=== PATIENT | male | born 1960 | race Caucasian/White ===

== ENCOUNTER 2020-06-01 11:44 | Inpatient (IN) ==
[2020-06-01] MEDS ORDERED: SODIUM CHLORIDE 0.9% 1000ML 1,000 ML IV ONE (12:46)
[2020-06-01] MEDS ORDERED: GI COCKTAIL ED USE PO ONE (12:46)
[2020-06-01] MEDS ORDERED: FAMOTIDINE 20MG IV PUSH 20 MG/5 ML SYR IV STA (12:46)
[2020-06-01] MEDS ORDERED: METOCLOPRAMIDE HCL INJ 5 MG/ML 2 ML VIAL IV STA (12:50)
[2020-06-01 13:36] LABS: Basophils # (auto) 0.01 K/uL (0-0.2); Basophils % (auto) 0.2 %; Eosinophils # (auto) 0.04 K/uL (0-0.5); Eosinophils % (auto) 0.9 %; Hematocrit (blood only) 42.5 % (42-52); Hemoglobin 15.2 g/dL (14.0-18.0); Immature Granulocytes # (auto) 0.01 K/uL (0.00-0.02); Immature Granulocytes % (auto) 0.2 %; Lymphocytes # (auto) 1.88 K/uL (1.2-3.4); Lymphocytes % (auto) 44.4 %; Mean Corpuscular Hemoglobin 29.7 pg (25-34); Mean Corpuscular Hgb Conc 35.8 g/dL (32-36); Mean Platelet Volume 9.5 fL (7.4-10.4); Monocytes # (auto) 0.34 K/uL (0.11-0.59); Neutrophils # (auto) 1.95 K/uL (1.4-6.5); Neutrophils % (auto) 46.3 %; Platelet Count 170 K/uL (130-400); RDW Coefficient of Variation 13.3 % (11.5-14.5); RDW Standard Deviation 40.2 fL (36.4-46.3); Red Blood Count 5.12 M/uL (4.7-6.1); White Blood Count 4.23 K/uL (4.8-10.8)
--- NOTE | 2020-06-01 13:42 | XRay Report ---
SINGLE VIEW CHEST CLINICAL HISTORY: Epigastric abdominal pain. FINDINGS: An AP, portable, upright chest radiograph is compared to study dated 07/21/2019 and correlat ed with chest CT dated 07/17/2019. The heart is top normal for projection. The lungs and pleural space s are clear. No pneumothorax is seen. The bony thorax is grossly intact. IMPRESSION: No active disease in the chest. ACT 112: Negative or not required by law. Electronically signed by: Gregory Orosco M.D. 06/01/2020 1:41 PM
[2020-06-01 13:52] LABS: Alanine Aminotransferase 51 U/L (12-78); Albumin Level 3.6 gm/dl (3.4-5.0); Aspartate Aminotransferase 29 U/L (15-37); BUN Creatinine Ratio 10.4 (10-20); Blood Urea Nitrogen 10 mg/dl (7-18); Carbon Dioxide 27 mmol/L (21-32); Chloride 109 mmol/L (98-107); Est GFR (Non-African American) 85.4; Glucose 83 mg/dl (70-99); Lipase 165 U/L (73-393); Potassium 3.8 mmol/L (3.5-5.1); Sodium 142 mmol/L (136-145)
[2020-06-01 13:57] LABS: Albumin Globulin Ratio 1.1 (0.9-2); Alkaline Phosphatase 131 U/L (45-117); Bilirubin,Total 0.9 mg/dl (0.2-1); Globulin 3.2 gm/dl (2.5-4.0); Total Protein 6.8 gm/dl (6.4-8.2); Troponin I < 0.015 ng/ml (0-0.045)
[2020-06-01 13:57] LABS: Appearance Urine Clear (Clear); Bacteria Urine Automated Negative (Negative); Bilirubin Urine Negative (Negative); Blood Urine Trace (Negative); Color Urine Yellow; Epithelial Cell Urine Auto 0-5 /lpf (0-5); Glucose Urine UA Negative (Negative); Ketones Urine Negative (Negative); Leukocyte Esterase Urine Negative (Negative); Nitrite Urine Negative (Negative); Protein Urine Negative (Negative); RBC Urine Automated 0-4 /hpf (0-4); Specific Gravity Urine 1.012 (1.000-1.030); Urobilinogen Urine Negative (Negative)
[2020-06-01] MEDS ORDERED: IOVERSOL 100ml IV ONE (14:32)
--- NOTE | 2020-06-01 15:00 | CT Scan Report ---
CT abd pelvis IV con only CLINICAL HISTORY: epigastric pain COMPARISON STUDY: 02/19/2020 TECHNIQUE: Patient was scanned in a dynamic helical fashion during intravenous administration of 94 c c of Optiray 320 A dose lowering technique was utilized adhering to the principles of ALARA. CT DOSE: 1008.30 mGycm FINDINGS: Lower chest: There are groundglass pulmonary opacities within the right lower lobe with a cyst periph eral distribution. The findings are viewed as suspicious for a Cobra 19 pneumonia and correlation wit h Covid 19 testing is recommended. Liver: The contrast-enhanced liver is normal in size, contour, and attenuation. There is no intrahepa tic biliary ductal dilatation. The hepatic veins and portal veins are patent. Gallbladder: Surgically absent Spleen: Normal in size and attenuation. Pancreas: Unremarkable. Adrenal glands: Unremarkable. Kidneys: There are large right renal cysts and small left renal cysts. There are lower pole right piyush al calculi. There is no hydronephrosis. No ureteral or bladder calculi are visualized. Bowel: There are no transition zones indicate bowel obstruction. There is no evidence of acute divert iculitis. There is equivocal minor right colonic wall thickening. A minimal colitis cannot be exclude d. Peritoneum: There is no intraperitoneal free air or abdominal ascites. Vasculature: The abdominal aorta is normal in course and caliber. Adenopathy: None. Pelvic viscera: The prostate is enlarged. Skeletal structures: No destructive osseous lesions are seen. IMPRESSION: 1. No evidence of bowel obstruction. No evidence of free air 2. Right-sided nephrolithiasis. No evidence of hydronephrosis. 3. Prostatomegaly 4. Equivocal minimal right colonic wall thickening. A minimal colitis cannot be excluded 5. Right lower lobe groundglass pulmonary opacities, suspicious for a pneumonia. Correlation with Cov id 19 testing is recommended ACT 112: Negative or not required by law. Electronically signed by: Bunny Linares M.D. 06/01/2020 2:58 PM
--- NOTE | 2020-06-01 15:23 | Emergency Department Note ---
History of Present Illness General Chief complaint: Abdominal Pain Stated complaint: CONFUSION, VOMITING Time Seen by Provider: 06/01/20 12:40 Source: patient Mode of arrival: ambulatory Limitations: no limitations History of Present Illness Provider complaint: "I got a bellyache" Onset (ago): week(s) 2 Maximum Pain Intensity: 8 This 60-year-old male patient presents to the emergency department today for evaluation of "I got a belly ache". The patient states he has been experiencing epigastric pain, nausea, vomiting, difficulty eating since 05/19. He states he is feeling very hungry, but every time he eats he vomits. He has been able to keep down some p.o. fluids. He was here 2 days ago and had labs but no imaging completed. He saw his PCP via telehealth visit prior to arrival today who referred him to the emergency department, as he did not feel well enough to wait for an outpatient work-up. He states he has taken nausea medication without relief. He denies any chest pain or dyspnea. He states he has had some coughing which began 2 weeks ago as well. He reports constant generalized body aches and epigastric pain which is nonpositional. It is constant. Patient has taken no other medications for his symptoms. He denies any known COVID-19 exposures. Home Medications Medication Instructions Recorded Confirmed Type lisinopril 10 mg tablet 10 mg PO QAM 04/15/19 06/01/20 History diazepam [Valium] 5 mg PO Q8H PRN #10 tab 02/19/20 06/01/20 Rx cholecalciferol (vitamin D3) 25 mcg PO QAM 05/30/20 06/01/20 History [Vitamin D3] doxycycline hyclate 100 mg PO Q12H 7 Days #14 tab 05/30/20 06/01/20 Rx ibuprofen 200 mg PO Q6H PRN 05/30/20 06/01/20 History ondansetron HCl [Zofran] 4 mg PO TID PRN 5 Days #15 tab 05/30/20 06/01/20 Rx vitamin E 450 mg PO QAM 05/30/20 06/01/20 History Allergies Allergy/AdvReac Type Severity Reaction Status Date / Time No Known Allergies Allergy Verified 06/01/20 13:46 Past Med/Surg History Medical History (Updated 12/04/20 @ 16:28 by Silvana Mascorro PA-C) Family history of melanoma Hypertension Surgical History No significant past surgical history Family History Sister Melanoma Social History Smoking Status: Never smoker Tobacco Type: Smokeless Tobacco (Dip or Chew) Hx Alcohol Use: Yes Hx Substance Use: No Preferred Language: Slovak Feels Safe at Home: Yes Review of Systems A total of 10 systems reviewed and were otherwise negative Physical Exam Vital Signs Vital Signs - 24 hr 06/01/20 11:50 06/01/20 12:53 06/01/20 12:56 Temperature 36.7 C Temperature Source Skin Pulse Rate 86 68 Respiratory Rate 20 12 Respiratory Effort / Characteristics Non-Labored Respiratory Depth Normal Blood Pressure 111/81 Blood Pressure Mean 91 Pulse Oximetry 97 97 Oxygen Delivery Method Room Air Room Air Sepsis Recent Fever Within 48 Hours No Sepsis New/Unexplained Change in Mental Status N/A Sepsis Action Taken by Nursing No Action Required 06/01/20 13:00 06/01/20 13:24 06/01/20 13:30 Temperature Temperature Source Pulse Rate 68 69 76 Respiratory Rate 18 15 17 Respiratory Effort / Characteristics Respiratory Depth Blood Pressure 118/72 140/77 Blood Pressure Mean 75 103 Pulse Oximetry Oxygen Delivery Method Sepsis Recent Fever Within 48 Hours Sepsis New/Unexplained Change in Mental Status Sepsis Action Taken by Nursing 06/01/20 14:00 06/01/20 15:10 06/01/20 15:11 Temperature Temperature Source Pulse Rate 67 78 71 Respiratory Rate 12 17 17 Respiratory Effort / Characteristics Respiratory Depth Blood Pressure 154/71 H Blood Pressure Mean 82 Pulse Oximetry Oxygen Delivery Method Sepsis Recent Fever Within 48 Hours Sepsis New/Unexplained Change in Mental Status Sepsis Action Taken by Nursing 06/01/20 15:30 Temperature Temperature Source Pulse Rate 77 Respiratory Rate 14 Respiratory Effort / Characteristics Respiratory Depth Blood Pressure 142/87 H Blood Pressure Mean 89 Pulse Oximetry Oxygen Delivery Method Sepsis Recent Fever Within 48 Hours Sepsis New/Unexplained Change in Mental Status Sepsis Action Taken by Nursing VITALS: Vitals are noted on the nurse's note and reviewed by myself. Vital sign s stable. GENERAL: This is a 60-year-old white male, in no acute distress, nondiaphoretic, well-developed well-nourished. SKIN: The skin was without rashes, erythema, edema, or bruising. There is no tenting of the skin. Capillary refill less than 2 seconds. HEAD: Normocephalic atraumatic. EYES: Conjunctivae without injection, sclerae without icterus. NECK: Supple without nuchal rigidity. No lymphadenopathy. Cervical spine is nontender. No JVD. HEART: Regular rate and rhythm without murmurs gallops or rubs. LUNGS: Clear to auscultation bilaterally without wheezes, rales or rhonchi. No retractions or accessory muscle use. ABDOMEN: Positive bowel sounds x 4. Normal tympanic percussion. Epigastric tenderness to palpation. Abdomen otherwise soft, nontender, without masses or organomegaly. Pete sign negative. No guarding or rebound tenderness. No CVA tenderness. MUSCULOSKELETAL: No muscle atrophy, erythema, or edema noted. Full range of motion without joint tenderness in all extremities. No tenderness to palpation. Normal gait. Strength 5/5 throughout. NEURO: Patient was alert and oriented to person place and time. No focal neurological deficits. Course Course The patient was seen and evaluated as above. An order was placed for continuous cardiac monitoring. The monitor shows a normal sinus rhythm at a rate of 71 bpm. IV access obtained, labs drawn. Patient medicated with IV fluids, Reglan, Pepcid, and GI cocktail. Imaging performed and reviewed by myself and radiologist as noted. Labs reviewed by myself. I discussed the findings with the patient at bedside. CT imaging concerning for possible COVID-19 pneumonia with groundglass pulmonary opacities noted in the right lower lobe. I discussed the findings with the patient at bedside. He states he is continuing to feel "lousy". He is asking for something to eat and states he does not feel that he can manage his symptoms at home. He is requesting admission. COVID-19 testing ordered and performed. I discussed the case with the strategic planning manager. I discussed the case with Gretchen Gannon PA-C, [facility] hospitalist. She did agree to see and evaluate the patient. Administered Medications Discontinued Medications Al Hydrox/Mg Hydrox/Simethicone (Gi Cocktail Ed Use) 1 dose PO ONE ONE Stop: 06/01/20 12:47 Last Admin: 06/01/20 13:24 Dose: 1 dose Documented by: [id number] Sodium Chloride (Nss 1000ml) 1,000 mls @ 999 mls/hr IV .Q1H1M ONE Stop: 06/01/20 13:46 Last Infusion: 06/01/20 14:31 Dose: 0 mls/hr Documented by: [id number] Admin: 06/01/20 13:24 Dose: 999 mls/hr Documented by: [id number] Famotidine (Pepcid 20mg Iv Push) 20 mg in 5 mls @ 2.5 mls/min IV NOW STA Stop: 06/01/20 12:47 Last Admin: 06/01/20 13:24 Dose: 2.5 mls/min Documented by: [id number] Ioversol (Ioversol 100ml) 94 ml IV ONCE ONE Stop: 06/01/20 14:33 Last Admin: 06/01/20 14:33 Dose: 94 ml Documented by: [id number] Metoclopramide HCl (Metoclopramide Hcl Inj 5 Mg/Ml 2 Ml Vial) 10 mg IV NOW STA Stop: 06/01/20 12:51 Last Admin: 06/01/20 13:24 Dose: 10 mg Documented by: [id number] Medical Decision Making Differential Diagnosis Etiologies such as appendicitis, diverticulitis, obstruction, inflammatory bowel disease, renal colic, PUD, biliary pathology, pancreatitis, mesenteric ischemia, aortic pathology, infections, genitourinary, UTI, perforated viscus, COVID-19, pneumonia, as well as others were entertained. Medical Records Attestation: I reviewed the patient's medical records. Home Medications Current Medication List: was personally reviewed by me Laboratory Data Attestation: I reviewed the patient's lab results. Mild leukopenia with a white blood cell count of 4.22. No anemia or thrombocytopenia. Renal, hepatic function electrolytes without significant abnormality. Troponin negative. Lipase 165. Urinalysis negative for evidence of infection. Trace blood noted. Result diagrams: 06/01/20 13:20 06/01/20 13:20 Lab Results 06/01/20 06/01/20 06/01/20 Range/Units 13:20 13:20 13:40 WBC 4.23 L (4.8-10.8) K/uL RBC 5.12 (4.7-6.1) M/uL Hgb 15.2 (14.0-18.0) g/dL Hct 42.5 (42-52) % MCV 83.0 (80-100) fL MCH 29.7 (25-34) pg MCHC 35.8 (32-36) g/dL RDW Std Deviation 40.2 (36.4-46.3) fL RDW Coeff of Pollo 13.3 (11.5-14.5) % Plt Count 170 (130-400) K/uL MPV 9.5 (7.4-10.4) fL Immature Gran % (Auto) 0.2 % Neut % (Auto) 46.3 % Lymph % (Auto) 44.4 % [place] % (Auto) 8.0 % Eos % (Auto) 0.9 % Baso % (Auto) 0.2 % Neut # (Auto) 1.95 (1.4-6.5) K/uL Lymph # (Auto) 1.88 (1.2-3.4) K/uL [place] # (Auto) 0.34 (0.11-0.59) K/uL Eos # (Auto) 0.04 (0-0.5) K/uL Baso # (Auto) 0.01 (0-0.2) K/uL Immature Gran # (Auto) 0.01 (0.00-0.02) K/uL Sodium 142 (136-145) mmol/L Potassium 3.8 (3.5-5.1) mmol/L Chloride 109 H (98-107) mmol/L Carbon Dioxide 27 (21-32) mmol/L Anion Gap 6.0 (3-11) BUN 10 (7-18) mg/dl Creatinine 0.95 (0.6-1.4) mg/dl Est Cr Clr Drug Dosing Not Reportable Est GFR ( Amer) 99.0 Est GFR (Non-Af Amer) 85.4 BUN/Creatinine Ratio 10.4 (10-20) Glucose 83 (70-99) mg/dl Calcium 9.0 (8.5-10.1) mg/dl Total Bilirubin 0.9 (0.2-1) mg/dl AST 29 (15-37) U/L ALT 51 (12-78) U/L Alkaline Phosphatase 131 H (45-117) U/L Troponin I < 0.015 (0-0.045) ng/ml Total Protein 6.8 (6.4-8.2) gm/dl Albumin 3.6 (3.4-5.0) gm/dl Globulin 3.2 (2.5-4.0) gm/dl Albumin/Globulin Ratio 1.1 (0.9-2) Lipase 165 (73-393) U/L Urine Color Yellow Urine Appearance Clear (Clear) Urine pH 5.0 (4.5-7.5) Ur Specific [place] 1.012 (1.000-1.030) Urine Protein Negative (Negative) Urine Glucose (UA) Negative (Negative) Urine Ketones Negative (Negative) Urine Blood Trace H (Negative) Urine Nitrite Negative (Negative) Urine Bilirubin Negative (Negative) Urine Urobilinogen Negative (Negative) Ur Leukocyte Esterase Negative (Negative) Urine WBC (Auto) 1-5 (0-5) /hpf Urine RBC (Auto) 0-4 (0-4) /hpf U Hyaline Cast (Auto) 1-5 (0-5) /lpf U Epithel Cells (Auto) 0-5 (0-5) /lpf Urine Bacteria (Auto) Negative (Negative) COVID-19 Eval Order 06/01/20 Range/Units 15:37 WBC (4.8-10.8) K/uL RBC (4.7-6.1) M/uL Hgb (14.0-18.0) g/dL Hct (42-52) % MCV (80-100) fL MCH (25-34) pg MCHC (32-36) g/dL RDW Std Deviation (36.4-46.3) fL RDW Coeff of Pollo (11.5-14.5) % Plt Count (130-400) K/uL MPV (7.4-10.4) fL Immature Gran % (Auto) % Neut % (Auto) % Lymph % (Auto) % [place] % (Auto) % Eos % (Auto) % Baso % (Auto) % Neut # (Auto) (1.4-6.5) K/uL Lymph # (Auto) (1.2-3.4) K/uL [place] # (Auto) (0.11-0.59) K/uL Eos # (Auto) (0-0.5) K/uL Baso # (Auto) (0-0.2) K/uL Immature Gran # (Auto) (0.00-0.02) K/uL Sodium (136-145) mmol/L Potassium (3.5-5.1) mmol/L Chloride (98-107) mmol/L Carbon Dioxide (21-32) mmol/L Anion Gap (3-11) BUN (7-18) mg/dl Creatinine (0.6-1.4) mg/dl Est Cr Clr Drug Dosing Est GFR ( Amer) Est GFR (Non-Af Amer) BUN/Creatinine Ratio (10-20) Glucose (70-99) mg/dl Calcium (8.5-10.1) mg/dl Total Bilirubin (0.2-1) mg/dl AST (15-37) U/L ALT (12-78) U/L Alkaline Phosphatase (45-117) U/L Troponin I (0-0.045) ng/ml Total Protein (6.4-8.2) gm/dl Albumin (3.4-5.0) gm/dl Globulin (2.5-4.0) gm/dl Albumin/Globulin Ratio (0.9-2) Lipase (73-393) U/L Urine Color Urine Appearance (Clear) Urine pH (4.5-7.5) Ur Specific [place] (1.000-1.030) Urine Protein (Negative) Urine Glucose (UA) (Negative) Urine Ketones (Negative) Urine Blood (Negative) Urine Nitrite (Negative) Urine Bilirubin (Negative) Urine Urobilinogen (Negative) Ur Leukocyte Esterase (Negative) Urine WBC (Auto) (0-5) /hpf Urine RBC (Auto) (0-4) /hpf U Hyaline Cast (Auto) (0-5) /lpf U Epithel Cells (Auto) (0-5) /lpf Urine Bacteria (Auto) (Negative) COVID-19 Eval Order Covid19 IDNow [facility] Imaging Data Radiologist's Impression: SINGLE VIEW CHEST CLINICAL HISTORY: Epigastric abdominal pain. FINDINGS: An AP, portable, upright chest radiograph is compared to study dated 07/21/2019 and correlated with chest CT dated 07/17/2019. The heart is top normal for projection. The lungs and pleural spaces are clear. No pneumothorax is seen. The bony thorax is grossly intact. IMPRESSION: No active disease in the chest. ACT 112: Negative or not required by law. Electronically signed by: Gregory Orosco M.D. 06/01/2020 1:[address] abd pelvis IV con only CLINICAL HISTORY: epigastric pain COMPARISON STUDY: 02/19/2020 TECHNIQUE: Patient was scanned in a dynamic helical fashion during intravenous administration of 94 cc of Optiray 320 A dose lowering technique was utilized adhering to the principles of ALARA. CT DOSE: 1008.30 mGycm FINDINGS: Lower chest: There are groundglass pulmonary opacities within the right lower lobe with a cyst peripheral distribution. The findings are viewed as suspicious for a Cobra 19 pneumonia and correlation with Covid 19 testing is recommended. Liver: The contrast-enhanced liver is normal in size, contour, and attenuation. There is no intrahepatic biliary ductal dilatation. The hepatic veins and portal veins are patent. Gallbladder: Surgically absent Spleen: Normal in size and attenuation. Pancreas: Unremarkable. Adrenal glands: Unremarkable. Kidneys: There are large right renal cysts and small left renal cysts. There are lower pole right renal calculi. There is no hydronephrosis. No ureteral or bladder calculi are visualized. Bowel: There are no transition zones indicate bowel obstruction. There is no evidence of acute diverticulitis. There is equivocal minor right colonic wall thickening. A minimal colitis cannot be excluded. Peritoneum: There is no intraperitoneal free air or abdominal ascites. Vasculature: The abdominal aorta is normal in course and caliber. Adenopathy: None. Pelvic viscera: The prostate is enlarged. Skeletal structures: No destructive osseous lesions are seen. IMPRESSION: 1. No evidence of bowel obstruction. No evidence of free air 2. Right-sided nephrolithiasis. No evidence of hydronephrosis. 3. Prostatomegaly 4. Equivocal minimal right colonic wall thickening. A minimal colitis cannot be excluded 5. Right lower lobe groundglass pulmonary opacities, suspicious for a pneumonia. Correlation with Covid 19 testing is recommended ACT 112: Negative or not required by law. Electronically signed by: Bunny Linares M.D. 06/01/2020 2:58 PM ECG Data Attestation: I personally reviewed and interpreted this ECG as follows: Indication: + abdominal pain Rate (beats per minute): 64 Rhythm: + normal sinus ECG Intervals/blocks: + Normal QT-c ECG [place]: + Left axis deviation ECG ST segments: no ST depression, no ST elevation and no T-wave inversions Comparison ECG Date: from (05/30/2020) Change: no significant change Blood Pressure Blood Pressure Findings: Elevated blood pressure Blood Pressure Disposition: further management by hospitalist NARA Narrative This 60-year-old male patient presents to the emergency department today for evaluation of nausea, vomiting, and generalized fatigue and epigastric pain. Symptoms sound most consistent with gastritis, pain worse with lying flat and improves with upright. He has been having difficulty tolerating p.o. foods, but has been tolerating small amounts of fluids. He has been taking nausea medication without relief of his symptoms. Patient was referred by his PCP due to his symptoms and for imaging. Patient's labs unrevealing. Mild leukopenia. Electrolytes without abnormality. Urinalysis without evidence of infection or blood. CT imaging questionable for a minimal colitis and right lower lobe groundglass opacities, concerning for possible COVID-19. Rapid COVID-19 testing completed and was negative. Patient was complaining of feeling very hungry and asking for food, so was given p.o. fluids and applesauce. I did ask if he felt well enough to be discharged home, and he does not feel that he will be able to manage his symptoms at home and prefers to stay in the hospital. The patient will be admitted to the [facility] service for ongoing management of his symptoms. Please see hospitalist dictation. The chart was completed utilizing [employer] Speech voice recognition software. Grammatical errors, random word insertions, pronoun errors, and incomplete sentences are an occasional consequence of this system due to software limitations, ambient noise, and hardware issues. Any formal questions or concerns about the content, text, or information contained within the body of this dictation should be directly addressed to the provider for clarification. Impression & Plan Nausea, Abdominal pain Discharge Plan Visit Data Chief Complaint: Abdominal Pain Stated Complaint: CONFUSION, VOMITING ED Provider: Tuan Horne ED Midlevel Provider: Silvana Mascorro Discharge Problem: Nausea, Abdominal pain Patient Disposition: Admitted As Inpatient Forms Stand Alone Forms: My [employer] Prescriptions Prescriptions: No Action lisinopril 10 mg tablet 10 mg PO QAM RF: 0 vitamin E 400 unit Tablet 450 mg PO QAM RF: 0 ibuprofen 100 mg/5 mL Suspension 200 mg PO Q6H PRN (Reason: fever/pain) RF: 0 cholecalciferol (vitamin D3) [Vitamin D3] 25 mcg (1,000 unit) Tablet 25 mcg PO QAM RF: 0 ondansetron HCl [Zofran] 4 mg tablet 4 mg PO TID PRN (Reason: nausea and vomiting) 5 Days Qty: 15 RF: 0 doxycycline hyclate 100 mg tablet 100 mg PO Q12H 7 Days Qty: 14 RF: 0 diazepam [Valium] 5 mg tablet 5 mg PO Q8H PRN (Reason: musce spasm) Qty: 10 RF: 0 Referrals Referrals: Marie Driver MD [Primary Care Provider] -
--- NOTE | 2020-06-01 17:25 | History & Physical Report ---
Date of Service June 01, 2020 Assessment & Plan (1) Abdominal pain: (2) Nausea: This is a 60-year-old male who has significant past medical history of HTN, HLD, GERD, history of gastroparesis, history of melanoma, cerebral degeneration who presents to ED secondary to abdominal pain and ill feeling x2 weeks. Pt with multiple vague/viral sounding complaints x 2 weeks including chills, sweats, nausea, abdominal pain, loose stool, dry cough and general ill feeling that is worsening. 3 COVID-19 test negative, 05/21, 05/28 and 06/01. Known exposure prior to 05/19. Labs and imaging generally unremarkable, except right-sided nephrolithiasis and mild right colonic wall thickening possible colitis. Afebrile. Admit to medical Conservative management at this time with gentle hydration and clear liquid diet ? exacerbation of gastroparesis so we will continue clear liquid diet, as ne eded Reglan consult GI obtain stool studies continue doxycycline, day # 3, started 05/30 07/31 to tick bite, lyme negative but anaplasma pending PPI BID Tramadol prn abd pain obtain CT Chest w/o contrast given abd ground glass opacity on CT a/p (3) Hypertension: bp elevated in ED continue lisinopril monitor (4) Gastroparesis: (5) GERD (gastroesophageal reflux disease): pt with hx of esophagitis and [facility] done [facility] 2002 showing only 33% activity emptied by 120minutes Pantoprazole 40mg BID Clear liquid Diet Reglan 10mg q6h prn consult GI (6) Weight loss: reported 15lb weight loss since 05/19 work up as above (7) DVT prophylaxis: SQ Lovenox Disposition: admit to med/surg Follow up: PCP Dr. Driver upon discharge Pt was seen and examined in collaboration with Dr. Coleman, please see addendum History of Present Illness Chief Complaint: Abdominal pain and ill feeling x2 weeks. Primary Care Provider: Marie Driver MD This is a 60-year-old male who has significant past medical history of HTN, HLD, GERD, history of gastroparesis, history of melanoma, cerebral degeneration who presents to ED secondary to abdominal pain and ill feeling x2 weeks. Patient has been seen and evaluated in outside clinic x2, starting on 05/21. He states he was hunting with his buddies when on 05/19 he developed vague symptoms including chills, sweats, ill feeling, myalgias, nausea, loose stool and with upper quadrant abdominal pain. He was concerned he had Covid secondary to known exposure at [facility]. His initial screen was negative. Symptoms did not improve and he was having difficulty tolerating food or liquid. He was seen and evaluated again in clinic on 05/28 where he was retested for Covid. This again was negative. He was started on omeprazole and Protonix. He was seen in the ER on 05/30 and lab work was generally unremarkable and therefore he was discharged to home. He had a telemedicine visit with PCP today who offered further work-up but patient opted to present to ED. He states he continues to have chills but the sweats have resolved for about a week. He does occasionally feel dizzy when changing position, but denies syncope. He does have a very mild dry cough, nausea, epigastric and left upper quadrant abdominal pain that comes and goes, vomiting and inability to tolerate oral intake. Pain in left upper quadrant does not have a pattern. It is not worse with or after intake. He is moving bowels daily but describes it as loose. He has tried Pepto-Bismol which turned stools black, but this abated once he stopped using Pepto-Bismol. His last BM was today and was loose. Again pain with upper quadrant comes and goes, nothing makes better or worse, associate with a 10 to 15 pound weight loss in the past 2 weeks. He does not want to be discharged home due to inability to tolerate oral intake and continued weight loss. He has known tick bite 1 month ago. Lyme screen on 05/30 was negative and anaplasma still pending. He is currently prescribe doxycycline. Denies documented fever, lightheadedness, syncope, chest pain, shortness of breath, palpitations, MADRIGAL, hemoptysis, hematemesis, melena, dysuria, increased urgency or frequency with urination. As an outpatient he has tried omeprazole daily for about a week without improvement. He also tried Pepcid with no relief. According to outpatient records he does have a history in 2002 and a diagnosis of gastroparesis. States this somewhat feels similar to prior presentation, but much worse. In ED patient made hemodynamically stable, modestly hypertensive. CBC revealed a WBC low at 4.23k, H&H 15.2 and 42.5, platelet 170, BUN 10, creatinine 0.95, troponin and lipase WNL. He received IV Pepcid and GI cocktail in ED with mild improvement. Patient refusing discharge and requesting inpatient work-up. Allergies Allergy/AdvReac Type Severity Reaction Status Date / Time No Known Allergies Allergy Verified 06/01/20 13:46 Home Medications Medication Instructions Recorded Confirmed Type lisinopril 10 mg tablet 10 mg PO QAM 04/15/19 06/01/20 History diazepam [Valium] 5 mg PO Q8H PRN #10 tab 02/19/20 06/01/20 Rx cholecalciferol (vitamin D3) 25 mcg PO QAM 05/30/20 06/01/20 History [Vitamin D3] doxycycline hyclate 100 mg PO Q12H 7 Days #14 tab 05/30/20 06/01/20 Rx ibuprofen 200 mg PO Q6H PRN 05/30/20 06/01/20 History ondansetron HCl [Zofran] 4 mg PO TID PRN 5 Days #15 tab 05/30/20 06/01/20 Rx vitamin E 450 mg PO QAM 05/30/20 06/01/20 History Past Med/Surg History Medical History (Updated 06/01/20 @ 17:36 by Gretchen Gannon PA-C) Cerebral degeneration documented in [facility] Family history of melanoma Gastroparesis Gastric emptying study 09/15/2002 revealed delayed solid gastric emptying exam with only 33% of activity emptied by 120 minutes. GERD (gastroesophageal reflux disease) HLD (hyperlipidemia) Hypertension Surgical History (Updated 06/01/20 @ 17:30 by Gretchen Gannon PA-C) History of cholecystectomy Hx of local excision of skin lesion melanoma back of head Family History Sister Melanoma Social History (Updated 06/01/20 @ 17:30 by Gretchen Gannon PA-C) Smoking Status: Never smoker Tobacco Type: Smokeless Tobacco (Dip or Chew) Hx Alcohol Use: Yes Alcohol Intake Frequency: Monthly or Less Hx Substance Use: No Preferred Language: Togolese marital status: Current Living Situation: Spouse current occupational status: retired Feels Safe at Home: Yes Review of Systems Review of Systems: All systems reviewed & are unremarkable except as noted in HPI & below Physical Exam Physical Exam: Constitutional: WD/WN, vitals as above, NAD, sitting up in bed, pleasant, conversing easily Head: Normocephalic, Atraumatic Eyes: PERRL, conjunctivae normal, anicteric sclerae ENMT: external ear and nose normal, oropharynx normal Neck: trachea midline, no thyromegaly normal visual inspection Respiratory: normal respiratory effort, lungs clear to auscultation, no wheeze, rales, rhonchi. Normal insp/exp effort, no accessory muscle use Cardiovascular: RRR, no murmur, no edema Vessels: no JVD or carotid bruit Chest: normal inspection of chest Abdomen: normal bowel sounds, soft, nontender, no hepatosplenomegaly Musculoskeletal: no cyanosis or clubbing, extremities motor strength 5/5 Skin: no rashes, warm and dry normal turgor Neurologic: PERRL, EOMI, accommodation nl, no face palsy, no dysarthria CN's II-XI intact bilaterally and moves all extremities Psychiatric: A+Ox3, euthymic affect Lymphatic: no cervical or axillary lymphadenopathy : deferred Results & Data Results & Data ([facility]) Vital Signs (Past 12 Hours) Vital Signs Temp Pulse Resp BP Pulse Ox 06/01/20 17:01 71 14 167/109 H 06/01/20 16:30 61 15 06/01/20 16:00 84 13 06/01/20 15:30 77 14 142/87 H 06/01/20 15:11 71 17 154/71 H 06/01/20 15:10 78 17 06/01/20 14:00 67 12 06/01/20 13:30 76 17 140/77 06/01/20 13:24 69 15 118/72 06/01/20 13:00 68 18 06/01/20 12:56 68 12 06/01/20 12:53 97 06/01/20 11:50 36.7 C 86 20 111/81 97 Laboratory Results Short CBC 06/01/20 06/01/20 Range/Units 13:20 13:20 WBC 4.23 L (4.8-10.8) K/uL Hgb 15.2 (14.0-18.0) g/dL Hct 42.5 (42-52) % Plt Count 170 (130-400) K/uL Creatinine 0.95 (0.6-1.4) mg/dl BMP 06/01/20 13:20 Sodium 142 Potassium 3.8 Chloride 109 H Carbon Dioxide 27 BUN 10 Creatinine 0.95 Glucose 83 Calcium 9.0 Cardiac Enzymes 06/01/20 Range/Units 13:20 Troponin I < 0.015 (0-0.045) ng/ml Liver Function 06/01/20 Range/Units 13:20 Total Bilirubin 0.9 (0.2-1) mg/dl AST 29 (15-37) U/L ALT 51 (12-78) U/L Alkaline Phosphatase 131 H (45-117) U/L Albumin 3.6 (3.4-5.0) gm/dl Urine 06/01/20 Range/Units 13:40 Urine Color Yellow Urine Appearance Clear (Clear) Urine pH 5.0 (4.5-7.5) Ur Specific [place] 1.012 (1.000-1.030) Urine Protein Negative (Negative) Urine Glucose (UA) Negative (Negative) Diagnostic Findings CXR: IMPRESSION: No active disease in the chest. CT A/P: IMPRESSION: 1. No evidence of bowel obstruction. No evidence of free air 2. Right-sided nephrolithiasis. No evidence of hydronephrosis. 3. Prostatomegaly 4. Equivocal minimal right colonic wall thickening. A minimal colitis cannot be excluded 5. Right lower lobe groundglass pulmonary opacities, suspicious for a pneumonia. Correlation with Covid 19 testing is recommended Medications Administered Discontinued Medications Al Hydrox/Mg Hydrox/Simethicone (Gi Cocktail Ed Use) 1 dose PO ONE ONE Stop: 06/01/20 12:47 Last Admin: 06/01/20 13:24 Dose: 1 dose Documented by: [id number] Sodium Chloride (Nss 1000ml) 1,000 mls @ 999 mls/hr IV .Q1H1M ONE Stop: 06/01/20 13:46 Last Infusion: 06/01/20 14:31 Dose: 0 mls/hr Documented by: [id number] Admin: 06/01/20 13:24 Dose: 999 mls/hr Documented by: [id number] Famotidine (Pepcid 20mg Iv Push) 20 mg in 5 mls @ 2.5 mls/min IV NOW STA Stop: 06/01/20 12:47 Last Admin: 06/01/20 13:24 Dose: 2.5 mls/min Documented by: [id number] Ioversol (Ioversol 100ml) 94 ml IV ONCE ONE Stop: 06/01/20 14:33 Last Admin: 06/01/20 14:33 Dose: 94 ml Documented by: [id number] Metoclopramide HCl (Metoclopramide Hcl Inj 5 Mg/Ml 2 Ml Vial) 10 mg IV NOW STA Stop: 06/01/20 12:51 Last Admin: 06/01/20 13:24 Dose: 10 mg Documented by: [id number] ECG Rate (beats per minute): 64 Rhythm: normal sinus Code Status & VTE Plan Code Status Full Code VTE Prophylaxis Plan VTE Prophylaxis will be ordered: Yes Supervising Physician Co-Signing Physician Notes Pt seen and examined by me, care coordinated with Gretchen Gannon PA-C, pls refer to her note above for further detail. Pt is a 60-year-old male wit hx of HTN, HLD, GERD, history of gastroparesis, history of melanoma, cerebral degeneration who presents to ED secondary to abdominal pain and ill feeling x2 weeks. Patient has been seen and evaluated in outside clinic x2, starting on 05/21. His other symptoms included chills, swea ts, ill feeling, myalgias, nausea, loose stool and upper quadrant/epigastric abdominal pain. Patient also reports acid reflux and using lots of Tums, and significant weight loss, about 15 pounds. Patient's work-up is so far unrevealing, he was tested for Covid 19, and was found negative, Lyme screen was negative, Anaplasma is still pending, started on doxycycline empirically. He was also started on PPI recently. Currently he is sitting up in bed, and says that he actually feels better than usual. He has the symptoms on and off, but reports vomiting this morning, not eating very much for past 2 weeks, and also had loose stool this morning. He is alert and oriented and answering questions appropriately. Heart sounds are regular, lung sounds clear to auscultation bilaterally, without any wheezing rhonchi or crackles. Patient is able to speak in full sentences without any respiratory distress. Abdomen is soft, nondistended, there is mild tenderness in epigastric area/left upper abdomen. There is no CVA tenderness. Patient is able to move all 4 extremities spontaneously without difficulty. Skin is warm, dry, well-perfused. Lung imaging concerning for some opacity that could be consistent with viral infection. CT abdomen showing poss mild colitis. We will obtain stool cultures, test for C. difficile. Once obtained, may need to treat for possible colitis with antibiotics. In the meantime we will continue doxycycline for known tick bite. Patient is complaining of acid reflux, epigastric discomfort, possible PUD, in setting of a significant weight loss, will consult with gastroenterology. Gertrudis Coleman MD (1) Abdominal pain Abdominal location: epigastric Qualified Code(s): R10.13 - Epigastric pain
--- NOTE | 2020-06-01 17:47 | CT Scan Report ---
CT chest wo con CT DOSE: 455.99 mGy.cm HISTORY: Abnormal abdomen and pelvis CT. Right lower lobe opacities. Follow-up. TECHNIQUE: Multiaxial CT images of the chest were performed without contrast. A dose lowering techni que was utilized adhering to the principles of ALARA. COMPARISON: Chest CTA 07/17/2019. Abdomen and pelvis CT 06/01/2020. FINDINGS: No pneumothorax. The central airways are patent. No pleural effusions. Calcified granuloma within the right lower lobe is again noted. Punctate calcified granuloma within the left lower lobe. Small left perihilar groundglass density on image 154. There are multifocal peripheral groundglass de nsities within the right lower lobe. No suspicious lytic or blastic osseous lesions. Cholecystectomy. The visualized unenhanced liver and spleen are within normal limits. Normal esophagus. A 7 mm right thyroid nodule/cyst. No mediastinal or hilar lymphadenopathy. The heart is normal in size. No pericar dial effusion. Normal caliber thoracic aorta. IMPRESSION: Multifocal groundglass airspace opacities within the right lower lobe and a small left perihilar grou ndglass airspace opacity. This favors an atypical pneumonia. Correlation with Covid 19 testing recomm ended. Consider 3 month follow-up to ensure resolution. ACT 112: Negative or not required by law. Electronically signed by: Zak Parker M.D. 06/01/2020 5:46 PM
--- NOTE | 2020-06-01 18:08 | Electrocardiogram Report ---
Test Reason : Blood Pressure : / mmHG Vent. Rate : 064 BPM Atrial Rate : 064 BPM P-R Int : 186 ms QRS Dur : 094 ms QT Int : 434 ms P-R-T Axes : 061 -37 040 degrees QTc Int : 447 ms Normal sinus rhythm Left axis deviation Nonspecific ST abnormality Abnormal ECG When compared with ECG of 30-MAY-2020 13:35, No significant change was found Confirmed by Brad Hyde ([id number]) on 06/01/2020 6:07:38 PM Referred By: Marie Driver Confirmed By:Sanket Hyde
[2020-06-01] MEDS ORDERED: SODIUM CHLORIDE 0.9% 1000ML 1,000 ML IV SCH (18:44)
[2020-06-01] MEDS ORDERED: ACETAMINOPHEN 325 MG TAB PO PRN (18:44)
[2020-06-01] MEDS ORDERED: ALUMINUM/MAGNESIUM SUSP 30 ML UDC PO PRN (18:44)
[2020-06-01] MEDS ORDERED: POLYETHYLENE (MIRALAX) 17 GM PACK PO PRN (18:44)
[2020-06-01] MEDS ORDERED: traMADol HCL 50 MG TABLET PO PRN (18:44)
[2020-06-01] MEDS ORDERED: MAGNESIUM HYDROXIDE SUSP 30 ML UDC PO PRN (18:44)
[2020-06-01] MEDS: PANTOprazole 40 MG TAB PO SCH (23:04)
[2020-06-01] MEDS: DOXYCYCLINE HYCLATE 100 MG CAP PO SCH (23:04)
[2020-06-01] MEDS: ENOXAPARIN INJ 40 MG/0.4 ML SYR SQ SCH (23:05)
[2020-06-01] MEDS: METOCLOPRAMIDE HCL INJ 5 MG/ML 2 ML VIAL IV PRN (23:06)
[2020-06-02] MEDS: cefTRIAXone SODIUM 2,000 MG in DEXTROSE 5% 50 ML IV SCH ×2 (02:41→21:54)
[2020-06-02 04:03] LABS: Hematocrit (blood only) 41.4 % (42-52); Hemoglobin 14.5 g/dL (14.0-18.0); Mean Corpuscular Hemoglobin 29.4 pg (25-34); Mean Platelet Volume 9.6 fL (7.4-10.4); Platelet Count 178 K/uL (130-400); RDW Coefficient of Variation 13.2 % (11.5-14.5); RDW Standard Deviation 39.6 fL (36.4-46.3); Red Blood Count 4.93 M/uL (4.7-6.1); White Blood Count 5.21 K/uL (4.8-10.8)
[2020-06-02 04:19] LABS: BUN Creatinine Ratio 8.5 (10-20); Calcium 8.2 mg/dl (8.5-10.1); Creatinine Clr Calc Pharmacy 100.6 ml/min; Est GFR (African American) 104.3; Potassium 3.8 mmol/L (3.5-5.1)
[2020-06-02] MEDS: DOXYCYCLINE HYCLATE 100 MG CAP PO SCH ×2 (09:00→21:54)
[2020-06-02] MEDS: CHOLECALCIFEROL 1,000 UNITS 25 MCG TAB PO SCH (09:00)
[2020-06-02] MEDS: PANTOprazole 40 MG TAB PO SCH ×2 (09:00→21:54)
[2020-06-02] MEDS: lisinopril 10 MG TAB PO SCH (09:00)
[2020-06-02] MEDS: LACTATED RINGER'S 1,000 ML IV SCH ×2 (12:00→21:53)
[2020-06-02] MEDS ORDERED: LORazepam 0.5 MG TAB PO SCH (14:15)
[2020-06-02] MEDS ORDERED: LORazepam 0.5 MG TAB ONE (15:48)
[2020-06-02] MEDS ORDERED: PHARMACIST DISCHARGE MED REC CONSULT PRN (18:24)
[2020-06-02] MEDS ORDERED: OPTIRAY 320 125ml IV ONE (18:44)
--- NOTE | 2020-06-02 18:57 | Hospitalist Progress Note ---
Date of Service June 02, 2020 Assessment & Plan (1) Abdominal pain: (2) Nausea: Patient is a 60 yr male with H/O HTN, HLD, GERD, history of gastroparesis, history of melanoma, cerebral degeneration who presents to ED secondary to abdominal pain and ill feeling x2 weeks. Nausea/Vomiting/Abdominal Pain Likely secondary to colitis/gastroparesis -CT ABD:No evidence of bowel obstruction. No evidence of free air. Right-sided nephrolithiasis. No evidence of hydronephrosis. Prostatomegaly. Equivocal minimal right colonic wall thickening. A minimal colitis cannot be excluded. Right lower lobe ground glass pulmonary opacities, suspicious for a pneumonia. Correlation with Covid 19 testing is recommended. -Stool Studies: Pending -Continue IV fluids -Advance diet as tolerated -GI consulted -Continue PPI -Reglan PRN Atypical Pneumonia -CT Chest:Multifocal groundglass airspace opacities within the right lower lobe and a small left perihilar groundglass airspace opacity. This favors an atypical pneumonia. Correlation with Covid 19 testing recommended. Consider 3 month follow-up to ensure resolution. COVID Screen: Negative BioFire:Pending Continue Rocephin, doxycycline Saturating well on room air Abnormal CT Head Possible Acute/Subacute CVA Not a candidate for tPA- Passed the window period -CT head: Subtle nonspecific hypodensity within the left medial frontoparietal region. This potentially could represent a small acute/subacute infarct. An MRI could be obtained and follow-up as clinically appropriate. Equivocal left hyperdense left MCA sign. This may be artifactual, as this does not fit the reported clinical symptoms. Stroke work up including lipid panel, A1C, MRI Brain, MRA Head/Neck, ECHO Speech and swallow eval Start aspirin, plavix Neuro checks, Neurology consult PT/OT Fall Precautions Depression Reported suicidal thoughts to family Currently denies any suicidal ideation We will consult psychiatry for input H/O recent Tick Bite 1 month ago Continue doxycycline--started as outpatient Nephrolithiasis Incidental finding on CT scan Follow-up as outpatient H/O melanoma H/O cerebral degeneration As per records (3) Hypertension: continue lisinopril monitor (4) Gastroparesis: (5) GERD (gastroesophageal reflux disease): pt with hx of esophagitis and gastroparesis Recent Colonoscopy as outpatient --Had polypectomy Previously evaluated at [facility] 2002 GES done in 2002 showing only 33% activity emptied by 120minutes Continue Pantoprazole 40mg BID Reglan 10mg q6h prn consulted GI Advance diet as tolerated (6) Weight loss: reported 15lb weight loss since 05/19 Further work-up as outpatient (7) DVT prophylaxis: SQ Lovenox Code Status Full code Disposition Expected discharge home when medically stable. Admission and Anticipated Discharge Date Admission Date: June 01, 2020 Subjective Patient is seen and examined at bedside. Had nausea associated with one episode of vomiting this morning. Abdominal pain resolved after vomiting episode. Discussed with GI today. Reports dry cough. States feeling depressed. Denies suicidal ideation. Discussed with patient's family over the phone. Tolerated full liquid diet this morning. GI okay with advancing to regular diet. Review of Systems Review of Systems: All systems reviewed & are unremarkable except as noted in HPI & below Physical Exam Physical Exam: Physical Exam: Vitals signs as noted above General Appearance: Moderately built and nourished, no apparent distress Head: normocephalic, Atraumatic Eyes: normal inspection, EOMI, SHIMA Neck: supple, Trachea midline Respiratory/Chest: Decreased breath sounds, CTA, No accessory muscle use Cardiovascular: S1, S2, No murmur Abdomen/GI:Soft, mild epigastric tender, Bowel sounds present, no guarding or rigidity Extremities/Musculoskeletal: normal inspection, no edema Neurologic/Psych: AAOX3, grossly no focal neurological deficits Skin: normal color, warm Results & Data Results & Data ([facility]) Vital Signs (Past 12 Hours) Vital Signs Temp Pulse Resp BP Pulse Ox 06/02/20 15:00 36.7 C 60 18 159/84 H 96 06/02/20 07:10 36.8 C 75 18 131/70 96 Laboratory Results Short CBC 06/02/20 Range/Units 03:23 WBC 5.21 (4.8-10.8) K/uL Hgb 14.5 (14.0-18.0) g/dL Hct 41.4 L (42-52) % Plt Count 178 (130-400) K/uL BMP 06/02/20 03:23 Sodium 145 Potassium 3.8 Chloride 111 H Carbon Dioxide 31 BUN 8 Creatinine 0.91 Glucose 86 Calcium 8.2 L Medications Administered Current Inpatient Medications Acetaminophen (Acetaminophen 325 Mg Tab) 650 mg PO Q4H PRN PRN Reason: pain/fever Stop: 07/01/20 18:43 Al Hydrox/Mg Hydrox/Simethicone (Aluminum/Magnesium Susp 30 Ml Udc) 30 ml PO Q6H PRN PRN Reason: Dyspepsia Stop: 07/01/20 18:43 Aspirin (Aspirin 81 Mg Ectab) 81 mg PO DAILY [facility] Stop: 07/02/20 13:44 Clopidogrel Bisulfate (Clopidogrel Bisulfate 75 Mg Tab) 75 mg PO DAILY [facility] Stop: 07/02/20 13:44 Doxycycline Hyclate (Doxycycline Hyclate 100 Mg Cap) 100 mg PO BID [facility] Stop: 06/06/20 23:59 Last Admin: 06/01/20 23:04 Dose: 100 mg Documented by: Enoxaparin Sodium (Enoxaparin Inj 40 Mg/0.4 Ml Syr) 40 mg SQ Q24H [facility] Stop: 07/01/20 21:59 Last Admin: 06/01/20 23:05 Dose: 40 mg Documented by: Ceftriaxone Sodium 2,000 mg/ (Dextrose) 70 mls @ 100 mls/hr IV Q24H [facility]; Protocol Stop: 06/09/20 00:59 Last Infusion: 06/02/20 04:00 Dose: Infused Documented by: Lactated Ringer's (Lr) 1,000 mls @ 125 mls/hr IV .Q8H [facility] Stop: 06/03/20 03:24 Lisinopril (Lisinopril 10 Mg Tab) 10 mg PO QAM [facility] Stop: 07/02/20 08:59 Lorazepam (Lorazepam 0.5 Mg Tab) 0.5 mg PO TODAY@1415 [facility] Stop: 06/02/20 23:59 Magnesium Hydroxide (Magnesium Hydroxide Susp 30 Ml Udc) 30 ml PO Q6H PRN PRN Reason: Constipation Stop: 07/01/20 18:43 Metoclopramide HCl (Metoclopramide Hcl Inj 5 Mg/Ml 2 Ml Vial) 10 mg IV Q6H PRN PRN Reason: Nausea Stop: 07/01/20 18:43 Last Admin: 06/01/20 23:06 Dose: 10 mg Documented by: Miscellaneous Information (Pharmacist Discharge Med Rec Consult) 1 ea N/A UD PRN PRN Reason: Consult Stop: 07/02/20 18:23 Pantoprazole Sodium (Pantoprazole 40 Mg Tab) 40 mg PO BID [facility] Stop: 07/01/20 20:59 Last Admin: 06/01/20 23:04 Dose: 40 mg Documented by: Polyethylene Glycol (Polyethylene (Miralax) 17 Gm Pack) 17 gm PO DAILY PRN PRN Reason: Constipation Stop: 07/01/20 18:43 Tramadol HCl (Tramadol Hcl 50 Mg Tablet) 25 mg PO Q4H PRN PRN Reason: moderate pain Stop: 07/01/20 18:43 Vitamin D (Cholecalciferol 1,000 Units 25 Mcg Tab) 1,000 units PO QAM [facility] Stop: 07/02/20 08:59 (1) Abdominal pain Abdominal location: epigastric Qualified Code(s): R10.13 - Epigastric pain
[2020-06-02] MEDS: ASPIRIN 81 MG ECTAB PO SCH (19:08)
[2020-06-02] MEDS: CLOPIDOGREL BISULFATE 75 MG TAB PO SCH (19:08)
[2020-06-02] MEDS: METOCLOPRAMIDE HCL INJ 5 MG/ML 2 ML VIAL IV PRN (19:11)
--- NOTE | 2020-06-02 21:06 | CT Scan Report ---
CT angio head w con CLINICAL HISTORY: Acute stroke TECHNIQUE: CT angiography of the head was performed in a dynamic helical fashion during intravenous a dministration of 320 cc of Optiray 320. MIP imaging was performed. A dose lowering technique was util ized adhering to the principles of ALARA. CT DOSE: COMPARISON STUDY: Noncontrast head CT performed 06/02/2020 FINDINGS: There are no lesion suspicious for aneurysm. There are no major intracranial branch occlusi ons. The dural venous sinuses appear patent. There is a hypoplastic right A1 segment. IMPRESSION: 1. No evidence of aneurysm 2. No evidence of intracranial branch occlusion. No evidence of major stenosis. ACT 112: Negative or not required by law. Electronically signed by: Bunny Linares M.D. 06/02/2020 4:29 PM
--- NOTE | 2020-06-02 21:06 | CT Scan Report ---
CT angio neck w con CLINICAL HISTORY: Acute stroke COMPARISON STUDY: No previous studies for comparison. TECHNIQUE: CT angiography was performed from the aortic arch to the skull base. MIP imaging was perfo rmed. The patient was scanned in a dynamic helical fashion during intravenous administration of 120 c c of Optiray 320. A dose lowering technique was utilized adhering to the principles of ALARA. CT DOSE: Technique: CT angiogram of the carotid and vertebral arteries was obtained using intravenous contrast and 3-D reconstruction. NASCET criteria was utilized. Findings: There is an 11 mm right lobe thyroid nodule The right carotid revealed no evidence of aneurysm and no evidence of dissection. There is no evidenc e of hemodynamic significant stenosis. The left carotid revealed no evidence of hemodynamic significant stenosis. There is no evidence of an eurysm. There is no evidence of dissection. There is no evidence of hemodynamically significant vertebral stenosis. There is no evidence of verte bral dissection. IMPRESSION: No evidence of hemodynamically significant carotid or vertebral artery stenosis. No evidence of disse ction. ACT 112: Negative or not required by law. Electronically signed by: Bunny Linares M.D. 06/02/2020 4:31 PM
--- NOTE | 2020-06-02 21:31 | Magnetic Resonance Report ---
MRI OF THE BRAIN WITHOUT CONTRAST CLINICAL HISTORY: Change in mental status. COMPARISON STUDY: Noncontrast head CT performed the same day FINDINGS: Sagittal T1, axial diffusion, proton density and T2 weighted axial, coronal FLAIR, and axial T1-weigh jerome images were acquired. No intra or extra-axial mass lesions are visualized Axial diffusion-weighted images reveal no evidence of acute or subacute infarction. There is no evidence of ventricular dilatation. Proton density T2-weighted and FLAIR images reveal minimal foci of increased T2 signal within the whi te matter, likely on a small vessel basis. There are no abnormal flow voids. IMPRESSION: 1. No acute intracranial findings 2. No evidence of acute or subacute infarction 3. No evidence of intracranial mass on this noncontrast examination ACT 112: Negative or not required by law. Electronically signed by: Bunny Linares M.D. 06/02/2020 5:23 PM
--- NOTE | 2020-06-02 21:34 | CT Scan Report ---
CT head/brain wo con CLINICAL HISTORY: Headaches. Weakness. Acute change in mental status. COMPARISON STUDY: No previous studies for comparison. TECHNIQUE: Axial CT of the brain is performed from the vertex to the skull base. IV contrast was not administered for this examination. A dose lowering technique was utilized adhering to the principles of ALARA. CT DOSE: FINDINGS: There is a subtle hypodensity within the left medial frontoparietal region. This is nonspecific but c ould represent a small acute/subacute infarct. An MRI might be considered in follow-up for further ev aluation. There is no acute hemorrhage. There is no midline shift. No calvarial fractures are visualized. There is no evidence of pathologic ventricular dilatation. There is minimal left maxillary sinus mucosal thickening. There is an equivocal hyperdense left MCA sign. This is likely artifactual, as a left MCA thrombosis does not fit the reported clinical symptoms IMPRESSION: 1. Subtle nonspecific hypodensity within the left medial frontoparietal region. This potentially coul d represent a small acute/subacute infarct. An MRI could be obtained in follow-up as deemed clinicall y appropriate 2. Equivocal left hyperdense left MCA sign. This may be artifactual, as this does not fit the reporte d clinical symptoms. ACT 112: Negative or not required by law. Electronically signed by: Bunny Linares M.D. 06/02/2020 12:42 PM
[2020-06-02] MEDS: ENOXAPARIN INJ 40 MG/0.4 ML SYR SQ SCH (21:54)
[2020-06-03 06:59] LABS: Hematocrit (blood only) 39.6 % (42-52); Hemoglobin 14.1 g/dL (14.0-18.0); Mean Corpuscular Hemoglobin 29.6 pg (25-34); Mean Corpuscular Hgb Conc 35.6 g/dL (32-36); Mean Corpuscular Volume 83.2 fL (80-100); Mean Platelet Volume 9.4 fL (7.4-10.4); Platelet Count 194 K/uL (130-400); RDW Coefficient of Variation 13.2 % (11.5-14.5); Red Blood Count 4.76 M/uL (4.7-6.1); White Blood Count 4.42 K/uL (4.8-10.8)
[2020-06-03] MEDS: lisinopril 10 MG TAB PO SCH (07:18)
[2020-06-03] MEDS: CLOPIDOGREL BISULFATE 75 MG TAB PO SCH (07:19)
[2020-06-03] MEDS: ASPIRIN 81 MG ECTAB PO SCH (07:19)
[2020-06-03] MEDS: PANTOprazole 40 MG TAB PO SCH ×2 (07:19→23:15)
[2020-06-03] MEDS: DOXYCYCLINE HYCLATE 100 MG CAP PO SCH ×2 (07:19→22:31)
[2020-06-03] MEDS: CHOLECALCIFEROL 1,000 UNITS 25 MCG TAB PO SCH (07:19)
[2020-06-03] MEDS: METOCLOPRAMIDE HCL INJ 5 MG/ML 2 ML VIAL IV PRN (07:21)
[2020-06-03 07:41] LABS: Albumin Level 3.2 gm/dl (3.4-5.0); BUN Creatinine Ratio 8.9 (10-20); Calcium 8.2 mg/dl (8.5-10.1); Creatinine Clr Calc Pharmacy 117.4 ml/min; Est GFR (African American) 112.1; Est GFR (Non-African American) 96.7; Potassium 3.5 mmol/L (3.5-5.1)
[2020-06-03 07:44] LABS: Bilirubin,Total 0.7 mg/dl (0.2-1); Globulin 3.1 gm/dl (2.5-4.0); Total Protein 6.3 gm/dl (6.4-8.2)
[2020-06-03 07:51] LABS: Estimated Average Glucose 105 mg/dl; Hemoglobin A1C 5.3 % (4.5-5.6)
--- NOTE | 2020-06-03 12:03 | Psychiatric Consultation ---
Date of Consultation June 03, 2020 Impression / Recommendations (1) Adjustment disorder with mixed anxiety and depressed mood: Patient has had mood symptoms for approximately 2 weeks in the context of health/medical problems. He reports making suicidal statements out of frustration, and denies any plan or intent to harm himself. He notes that he is starting to feel better physically, and this is primary trigger/stressor. His 's reports match his, and both deny safety concerns with discharge. Reviewed this diagnosis with him, as well as warning signs that it is turning to clinical depression, including that symptoms do not resolve in the next few weeks, worsening mood or suicidal thoughts. Reviewed that suicidal thoughts are considered a psychiatric emergency and he agrees to seek treatment if this occurs. Discussed the role of counseling and encouraged him to consider this if he continues to feel overwhelmed, as well as use of his support network and engaging in activities that he enjoys and that help distract him from stressors. Patient does have multiple risk factors related to his demographics and family history of suicide, as well as medical problems, but has no history of mental illness, suicidality, self injury/suicide attempts, substance abuse. Protective factors include that he is , has good supports, is future oriented, and that symptoms are short-lived and associated with adjustment disorder and a clear stressor. He does have access to guns, and is a alireza. He and his were both given information about how to access mental health services if symptoms do not improve, as well as crisis contact information. He is not interested in psychiatric treatment at this time, and as he is not currently at acute risk of suicide, and can be managed as an outpatient. Thank you for the consult; please do not hesitate to contact us with any further needs. Risk Factors Assessment Male: Yes : Yes Do You Have Access To A Gun?: Yes (Patient is a alireza ) Health Problems: Yes Mental Health Diagnoses: No Substance Use Disorders: No Previous Attempt: No Family History of Suicide: Yes Previous Psychiatric Hospitalization: No Hopelessness: No Smoker: No Protective Factors Assessment : Yes Responsible for Young Children: No Stable Relationships: Yes Supportive Family: Yes Psych History Identifying Data 60-year-old male from [place] who has no psychiatric history and is hospitalized with pneumonia. Psychiatry consulted for depression. Chief Complaint "No, just don't want to be sick all your life". History of Present Illness Patient admitted 2 days ago with 2 weeks of symptoms including chills, sweats, myalgias, nausea, loose stools, abdominal pain, and feeling ill. He had had a negative Covid test x 2, and had been seen in outpatient clinic and ER several times prior to being admitted. He has had an extensive medical work-up including GI, respiratory, and stroke. He had a negative Lyme screen, abdominal CT, stool studies, GI consult, chest CT; diagnosed with atypical pneumonia and started on antibiotics. He had an abnormal head CT which showed subtle nonspecific hypodensity in the left medial frontoparietal region, possibly representing a small acute/subacute infarct, so is also undergoing a stroke work-up, with lipid panel, hemoglobin A1c, brain MRI, neck and head MRA, echo, speech and swallow eval, and has been started on aspirin and Plavix. His reported he made suicidal statements, so psychiatry was consulted. On my assessment, he states he has never had depression or any other mental health issues, and that mood was "really good," prior to the end of April when he started having health issues. He reports significant frustration with not knowing what is wrong with him medically, feeling that he is not getting answers as quickly as he would like, and just due to feeling unwell. He states he was generally in good health prior to this, and does not like "all of the unknowns" associated with being sick. He reports good supports, and says he made statements to his about being frustrated and not wanting to live this way, but denies that he has ever wanted to take his life, and that he has any thoughts or plans to harm himself or tried to end his life. He reports hope for the future, and says his statements were made out of frustration, although he can understand why his would have been concerned. He has had a 15 pound weight loss in the past 2 to 3 weeks, which he attributes to his abdominal symptoms. He denies social withdrawal, anhedonia, crying spells. Sleep is increased and has been 12-15 hours a day. He feels anxious specifically in regards to what is going on with him medically, but denies other stressors/concerns. He is not interested in mental health treatment at this time. Liaison nurse contacted his , who reported that the patient has been feeling unwell for the past 2 weeks, and despite seeing multiple clinicians and having a lot of tests, no one has been able to tell him what is wrong, which has been very frustrating for him. He said that on Thursday (06/01/2020), he made a statement about shooting himself, and then went to his PCPs office and was sent to the hospital. He is communicated his frustrations to her, feeling that he is not getting a clear explanation of what is wrong with him. She did not think he would benefit from psychiatric treatment because it would just make him angry, and stated her belief that he made the statement about killing himself out of frustration, and did not believe that he would act on these thoughts. She felt comfortable with him coming home, and was provided with crisis information. 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 Outpatient Services: None currently Previous Psych Admissions: None Do You Have Access To A Gun?: Yes (Patient is a alireza ) History of Previous Suicide Attempt: No Past Medication Trials: None Allergies Allergy/AdvReac Type Severity Reaction Status Date / Time No Known Allergies Allergy Verified 06/01/20 13:46 Home Medications Medication Instructions Recorded Confirmed Type lisinopril 10 mg tablet 10 mg PO QAM 04/15/19 06/01/20 History diazepam [Valium] 5 mg PO Q8H PRN #10 tab 02/19/20 06/01/20 Rx cholecalciferol (vitamin D3) 25 mcg PO QAM 05/30/20 06/01/20 History [Vitamin D3] doxycycline hyclate 100 mg PO Q12H 7 Days #14 tab 05/30/20 06/01/20 Rx ibuprofen 200 mg PO Q6H PRN 05/30/20 06/01/20 History ondansetron HCl [Zofran] 4 mg PO TID PRN 5 Days #15 tab 05/30/20 06/01/20 Rx vitamin E 450 mg PO QAM 05/30/20 06/01/20 History Family History Paternal uncle by suicide. Denies any other family history of mental illness. Substance Abuse History Patient denies drug/alcohol use. Personal History Living Arrangements: Home Living Arrangements Comments: With in [place] Childhood: From [place] Marital Status: Number Of Children: 2 adult children Beliefs That Will Affect Care: None History of Legal Problems: Denies Psychological Trauma History Comment: Denies Patient History Medical History (Updated 06/03/20 @ 11:56 by Mellissa Huddleston MD) Adjustment disorder with mixed anxiety and depressed mood Cerebral degeneration documented in [facility] Family history of melanoma Gastroparesis Gastric emptying study 09/15/2002 revealed delayed solid gastric emptying exam with only 33% of activity emptied by 120 minutes. GERD (gastroesophageal reflux disease) HLD (hyperlipidemia) Hypertension Surgical History (Updated 06/01/20 @ 17:30 by Gretchen Gannon PA-C) History of cholecystectomy Hx of local excision of skin lesion melanoma back of head Family History Sister Melanoma Social History (Updated 06/01/20 @ 17:30 by Gretchen Gannon PA-C) Smoking Status: Never smoker Tobacco Type: Smokeless Tobacco (Dip or Chew) Hx Alcohol Use: Yes Alcohol type: hard liquor Alcohol Intake Frequency: Monthly or Less Hx Substance Use: No Preferred Language: Urdu Communication Ability: Effective Beliefs That Will Affect Care: None marital status: Current Living Situation: Spouse current occupational status: retired Feels Safe at Home: Yes Assistive Devices: None Physical Exam Psychiatric: Orientation: alert and cooperative Apperance: appropriately groomed Male appearing his stated age, dressed in a hospital gown, white huang and shaved head. Seated on the edge of the bed in no acute distress. Calm, cooperative, and pleasant. Eye Contact: + fair eye contact Motor Behavior: no abnormal motor movements Speech: normal rate/rhythm/volume of speech Affect is restricted to down/frustrated, and congruent with stated mood. "Frustrated." Thought Process: goal directed thought process Suicidal Thoughts: denies suicidal thoughts Homicidal Thoughts: denies homicidal thoughts Hallucinations: no auditory hallucinations and no visual hallucinations Cognition: recent memory grossly intact, attention grossly intact and language grossly intact Estimated Intelligence: average estimated intelligence Insight: + fair insight Judgement: + fair judgement Vital Signs (Past 24 Hours): Last Vital Signs Temp 36.3 C L 06/03/20 07:30 Pulse 74 06/03/20 07:30 Resp 18 06/03/20 07:30 BP 128/80 06/03/20 07:30 Pulse Ox 95 06/03/20 10:10 Review of Systems All systems reviewed & are unremarkable except as noted in Subjective Results & Data (PSY) Medications Administered Al Hydrox/Mg Hydrox/Simethicone (Aluminum/Magnesium Susp 30 Ml Udc) 30 ml PO Q6H PRN PRN Reason: Dyspepsia Stop: 07/01/20 18:43 Last Admin: 06/03/20 06:42 Dose: 30 ml Documented by: [id number] Aspirin (Aspirin 81 Mg Ectab) 81 mg PO DAILY [facility] Stop: 07/02/20 13:44 Last Admin: 06/03/20 07:19 Dose: 81 mg Documented by: [id number] Admin: 06/02/20 19:08 Dose: 81 mg Documented by: [id number] Doxycycline Hyclate (Doxycycline Hyclate 100 Mg Cap) 100 mg PO BID [facility] Stop: 06/06/20 23:59 Last Admin: 06/03/20 07:19 Dose: 100 mg Documented by: [id number] Admin: 06/02/20 21:54 Dose: 100 mg Documented by: [id number] Admin: 06/02/20 09:00 Dose: 100 mg Documented by: [id number] Admin: 06/01/20 23:04 Dose: 100 mg Documented by: [id number] Enoxaparin Sodium (Enoxaparin Inj 40 Mg/0.4 Ml Syr) 40 mg SQ Q24H [facility] Stop: 07/01/20 21:59 Last Admin: 06/02/20 21:54 Dose: 40 mg Documented by: [id number] Admin: 06/01/20 23:05 Dose: 40 mg Documented by: [id number] Ceftriaxone Sodium 2,000 mg/ (Dextrose) 70 mls @ 100 mls/hr IV Q24H [facility]; Protocol Stop: 06/09/20 00:59 Last Infusion: 06/02/20 22:44 Dose: 0 mls/hr Documented by: [id number] Admin: 06/02/20 21:54 Dose: 100 mls/hr Documented by: [id number] Infusion: 06/02/20 04:00 Dose: 0 mls/hr Documented by: [id number] Admin: 06/02/20 02:41 Dose: 100 mls/hr Documented by: [id number] Lisinopril (Lisinopril 10 Mg Tab) 10 mg PO QAM [facility] Stop: 07/02/20 08:59 Last Admin: 06/03/20 07:18 Dose: 10 mg Documented by: [id number] Admin: 06/02/20 09:00 Dose: 10 mg Documented by: [id number] Metoclopramide HCl (Metoclopramide Hcl Inj 5 Mg/Ml 2 Ml Vial) 10 mg IV Q6H PRN PRN Reason: Nausea Stop: 07/01/20 18:43 Last Admin: 06/03/20 07:21 Dose: 10 mg Documented by: [id number] Admin: 06/02/20 19:11 Dose: 10 mg Documented by: [id number] Admin: 06/01/20 23:06 Dose: 10 mg Documented by: [id number] Pantoprazole Sodium (Pantoprazole 40 Mg Tab) 40 mg PO BID [facility] Stop: 07/01/20 20:59 Last Admin: 06/03/20 07:19 Dose: 40 mg Documented by: [id number] Admin: 06/02/20 21:54 Dose: 40 mg Documented by: [id number] Admin: 06/02/20 09:00 Dose: 40 mg Documented by: [id number] Admin: 06/01/20 23:04 Dose: 40 mg Documented by: [id number] Vitamin D (Cholecalciferol 1,000 Units 25 Mcg Tab) 1,000 units PO [facility] Stop: 07/02/20 08:59 Last Admin: 06/03/20 07:19 Dose: 1,000 units Documented by: [id number] Admin: 06/02/20 09:00 Dose: 1,000 units Documented by: [id number] Coding Level of Care Code 35522 [facility] Intl Hosp Care Lvl 3 Diagnoses Adjustment disorder with mixed anxiety and depressed mood F43.23
--- NOTE | 2020-06-03 14:17 | History and Physical Report ---
DATE OF ADMISSION: 06/02/2020 NEUROLOGY CONSULTATION NOTE CHIEF COMPLAINT: Abdominal pain and nausea. HISTORY OF PRESENT ILLNESS: A 60-year-old male with a prior history of hypertension, gastroesophageal reflux disease, gastroparesis, and hyperlipidemia who presented to the Emergency Department on 06/01/2020 for abdominal pain and not feeling well for 2 weeks. The patient was hunting with his friends on 05/19/2020 when he developed some ill-defined symptoms including chills, sweats, myalgias, nausea and diarrhea as well as upper quadrant abdominal pain. The patient was concerned he had COVID due to a known exposure at a [employer] building. His initial screen was negative. His symptoms persisted and was having difficulty tolerating oral intake. He was evaluated in clinic on 05/28/2020 where he retested for COVID, this test was once again negative. He was started on a proton pump inhibitor for gastroesophageal reflux disease. He decided to present to the Emergency Department due to chills and sweats; however, the sweats did improve. He does occasionally feel dizzy. He also complained of dry cough, nausea, epigastric and left upper quadrant abdominal pain. He was noted to have a tick bite about 1 month ago. A Lyme screen on 05/30/2020 was negative and Anaplasma was pending. He is currently on doxycycline. In the Emergency Department, he was stable, although had elevated blood pressures. He did not have a white count, although his WBC was low at 4.23. He received IV Pepcid and a GI cocktail in the ED with mild improvement in symptoms. He was refusing discharge and requested inpatient workup. The patient was admitted and had a CT head noncontrast that was read as abnormal. Therefore, Neurology was consulted for further evaluation. ALLERGIES: No known drug allergies. HOME MEDICATIONS: Lisinopril, Valium, vitamin D, doxycycline, ibuprofen, Zofran, vitamin D. PAST MEDICAL HISTORY: History of skin cancer, gastroparesis, gastroesophageal reflux disease, hyperlipidemia, hypertension. PAST SURGICAL HISTORY: Cholecystectomy, local excision of skin lesion. FAMILY HISTORY: His sister had melanoma. SOCIAL HISTORY: He is a nonsmoker. He does use smokeless tobacco. He drinks alcohol monthly or socially. He is . He is retired. REVIEW OF SYSTEMS: All systems reviewed and are unremarkable except as noted above in the HPI. PHYSICAL EXAMINATION: VITAL SIGNS: Blood pressure 128/80, pulse is 74, respiratory rate 18, temperature is 36.3 degrees Celsius, oxygen saturation is 95% on room air. GENERAL: The patient appears stated age and normally developed. HEENT: His face is normocephalic and atraumatic. Eyelids are normal with normal conjunctivae. NECK: Supple. LUNGS: He has normal respiratory effort. His pulses are normal. ABDOMEN: Nondistended. SKIN: No skin rashes noted. PSYCHIATRIC: Normal mood and normal affect. NEUROLOGIC: He is awake, alert and oriented to person, place and time. His knowledge is appropriate. His attention is normal. His speech is clear. His comprehension is intact and he is able to repeat. No visual defect on confrontation. His pupils are symmetric. Extraocular muscles are intact. His facial sensation is intact. No facial asymmetry. Intact hearing. Palate symmetric. He has a good shoulder shrug. Tongue is midline. Gait evaluation deferred. On coordination no tremor or myoclonic jerks. No ataxia with [id number] testing. Sensation is intact to light touch and symmetric. Muscle tone is normal. Muscle strength reveals 5/5 in the upper and lower extremities. Reflexes show a negative Kwadwo sign bilaterally as well as no ankle clonus. DIAGNOSTIC TESTING AND LABORATORY VALUES: WBC is 4.42, hemoglobin 14.1, platelet count 194. His INR is 1.0. Sodium 143, potassium 3.5, chloride 111, BUN is 7, creatinine 0.78, hemoglobin A1c 5.3, calcium 8.2, magnesium 2.0, AST and ALT are normal, alkaline phosphatase is elevated at 120. Lipase is normal. TSH is normal. Urinalysis shows trace blood, otherwise normal. MRI of the brain without contrast performed on 06/01/2020 showed no acute intracranial findings. No evidence of acute or subacute ischemic stroke. No evidence of intracranial mass on this noncontrast examination. Head and neck CTA, no evidence of aneurysm. No evidence of intracranial branch occlusion. No evidence of major stenosis. No evidence of hemodynamically significant carotid or vertebral artery stenosis. No evidence of dissection. CT of the chest showed multifocal ground-glass airspace opacities within the right lower lobe and small left perihilar ground-glass airspace opacity. This favors an atypical pneumonia. CT chest, abdomen and pelvis showed no evidence of bowel obstruction, no evidence of free air or right-sided nephrolithiasis, no evidence of hydronephrosis. There is an enlarged prostate, equivocal minimal right colonic wall thickening, right lower lobe ground-glass pulmonary opacities concerning for pneumonia. ASSESSMENT AND PLAN: A 60-year-old male admitted with chills and nausea and abdominal pain, found to have an atypical pneumonia. Upon admission, he had a CT head, noncontrast, which showed a possible hypodensity in the left frontal lobe. Upon further evaluation with MRI brain and CTA head and neck imaging this appeared artifactual as there is no evidence of acute subacute ischemic stroke. CTA head and neck showed no evidence of large vessel or high-grade stenosis. Clinical history is essentially devoid of any features to suggest a recent transient ischemic attack or stroke. We will defer to the primary service team for management of his atypical pneumonia. No additional neurological workup necessary.
--- NOTE | 2020-06-03 20:09 | Hospitalist Progress Note ---
Date of Service June 03, 2020 Assessment & Plan (1) Abdominal pain: (2) Nausea: Patient is a 60 yr male with H/O HTN, HLD, GERD, history of gastroparesis, history of melanoma, cerebral degeneration who presents to ED secondary to abdominal pain and ill feeling x2 weeks. Nausea/Vomiting/Abdominal Pain/Diarrhea Likely secondary to colitis/gastroparesis DD:PUD -Admits to taking NSAIDs for chronic headache -CT ABD:No evidence of bowel obstruction. No evidence of free air. Right-sided nephrolithiasis. No evidence of hydronephrosis. Prostatomegaly. Equivocal minimal right colonic wall thickening. A minimal colitis cannot be excluded. Right lower lobe ground glass pulmonary opacities, suspicious for a pneumonia. Correlation with Covid 19 testing is recommended. -Stool Studies:Negative -Continue IV fluids -Advance diet as tolerated -GI consulted -Continue PPI -Reglan PRN Atypical Pneumonia -CT Chest:Multifocal groundglass airspace opacities within the right lower lobe and a small left perihilar groundglass airspace opacity. This favors an atypical pneumonia. Correlation with Covid 19 testing recommended. Consider 3 month follow-up to ensure resolution. COVID Screen: Negative BioFire:Pending Continue Rocephin, doxycycline Saturating well on room air Abnormal CT Head Ruled out Acute/Subacute CVA Not a candidate for tPA- Passed the window period --CT head: Subtle nonspecific hypodensity within the left medial frontoparietal region. This potentially could represent a small acute/subacute infarct. An MRI could be obtained and follow-up as clinically appropriate. Equivocal left hyperdense left MCA sign. This may be artifactual, as this does not fit the reported clinical symptoms. -MRI Brain:No acute intracranial findings. No evidence of acute or subacute infarction. No evidence of intracranial mass on this noncontrast examination -Head CTA:No evidence of aneurysm. No evidence of intracranial branch occlusion. No evidence of major stenosis. -Neck CTA:No evidence of hemodynamically significant carotid or vertebral artery stenosis. No evidence of dissection. Appreciate Neurology Input Adjustment disorder with mixed anxiety and depressed mood Reported suicidal thoughts to family Currently denies any suicidal ideation Appreciate psychiatry input Patient is currently not interested in psychiatric treatment as documented H/O recent Tick Bite 1 month ago Continue doxycycline--started as outpatient Nephrolithiasis Incidental finding on CT scan Follow-up as outpatient H/O melanoma S/P surgery H/O cerebral degeneration As per records (3) Hypertension: continue lisinopril monitor (4) Gastroparesis: (5) GERD (gastroesophageal reflux disease): pt with hx of esophagitis and gastroparesis Recent Colonoscopy as outpatient --Had polypectomy Previously evaluated at [facility] 2002 GES done in 2002 showing only 33% activity emptied by 120minutes Continue Pantoprazole 40mg BID Reglan 10mg q6h prn consulted GI Advance diet as tolerated (6) Weight loss: reported 15lb weight loss since 05/19 Further work-up as outpatient (7) DVT prophylaxis: SQ Lovenox Code Status Full code Disposition Expected discharge home when medically stable. Admission and Anticipated Discharge Date Admission Date: June 02, 2020 Subjective Patient is seen and examined at bedside. States having minimal abdominal pain, GERD-like symptoms Denies nausea, vomiting Reports diarrhea--had 2 loose BM today Discussed with neurology and Psychiatry today Less cough. Discussed with patient's over the phone. Review of Systems Review of Systems: All systems reviewed & are unremarkable except as noted in HPI & below Physical Exam Physical Exam: Physical Exam: Vitals signs as noted above General Appearance: Moderately built and nourished, no apparent distress Head: normocephalic, Atraumatic Eyes: normal inspection, EOMI, SHIMA Neck: supple, Trachea midline Respiratory/Chest: Decreased breath sounds, CTA, No accessory muscle use Cardiovascular: S1, S2, No murmur Abdomen/GI:Soft, mild epigastric tender, Bowel sounds present, no guarding or rigidity Extremities/Musculoskeletal: normal inspection, no edema Neurologic/Psych: AAOX3, grossly no focal neurological deficits Skin: normal color, warm Results & Data Results & Data ([facility]) Vital Signs (Past 12 Hours) Vital Signs Temp Pulse Resp BP Pulse Ox Pulse Ox 06/03/20 15:15 36.3 C L 76 20 164/91 H 97 06/03/20 10:10 95 Laboratory Results Short CBC 06/03/20 Range/Units 06:40 WBC 4.42 L (4.8-10.8) K/uL Hgb 14.1 (14.0-18.0) g/dL Hct 39.6 L (42-52) % Plt Count 194 (130-400) K/uL BMP 06/03/20 06:40 Sodium 143 Potassium 3.5 Chloride 111 H Carbon Dioxide 28 BUN 7 Creatinine 0.78 Glucose 82 Calcium 8.2 L Liver Function 06/03/20 Range/Units 06:40 Total Bilirubin 0.7 (0.2-1) mg/dl AST 24 (15-37) U/L ALT 45 (12-78) U/L Alkaline Phosphatase 120 H (45-117) U/L Albumin 3.2 L (3.4-5.0) gm/dl (1) Abdominal pain Abdominal location: epigastric Qualified Code(s): R10.13 - Epigastric pain
--- NOTE | 2020-06-03 21:28 | Consultation Report ---
DATE OF CONSULTATION: 06/03/2020 GASTROENTEROLOGY CONSULT NOTE REASON FOR CONSULTATION: I was asked to consult on this gentleman by Dr. Askew, for evaluation of abdominal pain. HISTORY OF PRESENT ILLNESS: The patient is a 60-year-old who presented to this institution for abdominal pain and feeling ill for 2 weeks. He has been seen previously for this and has had a recent colonoscopy which revealed a small polyp that was removed. Rest of the workup has been negative. He states that his symptoms developed after hunting in the middle of April. He states he gets occasional heartburn and he has tried some Pepto-Bismol, but does not feel that it did a lot for his symptoms. He denies dysphagia. He denies nausea or vomiting. He feels that the pain is a soreness across his abdomen, typically the top of his abdomen. He describes no history of injury. He does state when he was hunting, he was quite physically active. His PCP started him on Protonix, but it is unclear whether he was taking this as an outpatient on a regular basis. PAST MEDICAL HISTORY: I reviewed his medical records and his past medical history and his past medical history is significant for GERD, hypertension. He is status post cholecystectomy. He was diagnosed with gastroparesis over a decade ago for unclear etiology. SOCIAL HISTORY: Significant for smoking with tobacco use and occasional social alcohol use. FAMILY HISTORY: Negative for gastrointestinal disease. REVIEW OF SYSTEMS: As above, otherwise he denies any recent jaundice or pruritus. He denies easy bruising. He denies joint swelling. He denies productive cough. He denies any exertional chest pain. He denies any hair loss. He denies any dysuria or polyuria. He denies any seizure history. He denies any significant change in mood. He has felt fatigued and has had some sweats and chills. PHYSICAL EXAMINATION: GENERAL: Reveals a pleasant gentleman in no distress. VITAL SIGNS: Most recent vitals show blood pressure 128/80, pulse 74, temperature 36.3. SKIN: Anicteric. EYES: Show anicteric sclerae. MOUTH: Clear of lesions. NECK: Supple, no adenopathy. CHEST: Clear. HEART: Regular rate and rhythm. ABDOMEN: Soft with good bowel sounds. He has some mild tenderness to deep palpation across the upper abdomen, but no rebound. No masses are palpable. EXTREMITIES: Warm with fair distal pulses. NEUROLOGIC: He is alert and oriented x3 and grossly intact. LABORATORY DATA: Show white blood cell count of 4.4, hemoglobin of 14, which is stable, platelet count of 194,000. Liver enzymes show an AST and ALT of 24 and 45 respectively. Mildly elevated alkaline phosphatase of 120. Imaging of the abdomen including the CAT scan of the abdomen and pelvis with IV contrast did not show any evidence of bowel obstruction. There was comment of prostatomegaly. There was no evidence of adenopathy noted. IMPRESSION PLAN: A 60-year-old gentleman with abdominal discomfort of unclear etiology. There is no evidence of gallstone disease and his liver enzymes do not reveal a pattern that would be consistent with this. Given his history of gastroparesis, I would recommend a gastroparesis diet to see if this helps. I would also recommend that the patient be put on Protonix and I recommended that he be as compliant as possible with taking this for 4-6 weeks to see if this helps with his symptoms. I think he may benefit from an outpatient upper endoscopy, but this does not have to be done on an emergent basis.
[2020-06-03] MEDS: cefTRIAXone SODIUM 2,000 MG in DEXTROSE 5% 50 ML IV SCH (22:31)
[2020-06-03] MEDS: ENOXAPARIN INJ 40 MG/0.4 ML SYR SQ SCH (22:31)
[2020-06-03] MEDS: PANTOprazole 40 MG in SYRINGE 0 ML IV SCH (22:31)
[2020-06-04 07:35] LABS: BUN Creatinine Ratio 10.8 (10-20); Calcium 8.3 mg/dl (8.5-10.1); Creatinine Clr Calc Pharmacy 99.5 ml/min; Est GFR (African American) 102.9; Est GFR (Non-African American) 88.8; Potassium 3.6 mmol/L (3.5-5.1)
[2020-06-04] MEDS: PANTOprazole 40 MG in SYRINGE 0 ML IV SCH (07:52)
[2020-06-04] MEDS: ASPIRIN 81 MG ECTAB PO SCH (07:52)
[2020-06-04] MEDS: CHOLECALCIFEROL 1,000 UNITS 25 MCG TAB PO SCH (07:52)
[2020-06-04] MEDS: lisinopril 10 MG TAB PO SCH (07:52)
[2020-06-04] MEDS: DOXYCYCLINE HYCLATE 100 MG CAP PO SCH (07:52)
[2020-06-04] MEDS: METOCLOPRAMIDE HCL INJ 5 MG/ML 2 ML VIAL IV PRN (12:46)
[2020-06-04] MEDS ORDERED: SUCRALFATE 1 GM TAB PO SCH (13:00)
--- NOTE | 2020-06-04 13:36 | Hospitalist Progress Note ---
Date of Service June 04, 2020 Assessment & Plan (1) Abdominal pain: (2) Nausea: Patient is a 60 yr male with H/O HTN, HLD, GERD, history of gastroparesis, history of melanoma, cerebral degeneration who presents to ED secondary to abdominal pain and ill feeling x2 weeks. Nausea/Vomiting/Abdominal Pain/Diarrhea Likely secondary to colitis/gastroparesis DD:PUD -Admits to taking NSAIDs for chronic headache -CT ABD:No evidence of bowel obstruction. No evidence of free air. Right-sided nephrolithiasis. No evidence of hydronephrosis. Prostatomegaly. Equivocal minimal right colonic wall thickening. A minimal colitis cannot be excluded. Right lower lobe ground glass pulmonary opacities, suspicious for a pneumonia. Correlation with Covid 19 testing is recommended. -Stool Studies:Negative -Continue IV fluids -Appreciate GI Input -Continue PPI -Reglan PRN -Added Carafate -Tolerated Regular diet -May need upper endoscopy as outpatient Atypical Pneumonia -CT Chest:Multifocal groundglass airspace opacities within the right lower lobe and a small left perihilar groundglass airspace opacity. This favors an atypical pneumonia. Correlation with Covid 19 testing recommended. Consider 3 month follow-up to ensure resolution. COVID Screen: Negative Continue Rocephin, doxycycline Saturating well on room air Will transition to PO Abx upon discharge Abnormal CT Head Ruled out Acute/Subacute CVA Not a candidate for tPA- Passed the window period --CT head: Subtle nonspecific hypodensity within the left medial frontoparietal region. This potentially could represent a small acute/subacute infarct. An MRI could be obtained and follow-up as clinically appropriate. Equivocal left hyperdense left MCA sign. This may be artifactual, as this does not fit the reported clinical symptoms. -MRI Brain:No acute intracranial findings. No evidence of acute or subacute infarction. No evidence of intracranial mass on this noncontrast examination -Head CTA:No evidence of aneurysm. No evidence of intracranial branch occlusion. No evidence of major stenosis. -Neck CTA:No evidence of hemodynamically significant carotid or vertebral artery stenosis. No evidence of dissection. Appreciate Neurology Input Adjustment disorder with mixed anxiety and depressed mood Reported suicidal thoughts to family Currently denies any suicidal ideation Appreciate psychiatry input Patient is currently not interested in psychiatric treatment as documented H/O recent Tick Bite 1 month ago Continue doxycycline--started as outpatient Nephrolithiasis Incidental finding on CT scan Follow-up as outpatient H/O melanoma S/P surgery H/O cerebral degeneration As per records (3) Hypertension: continue lisinopril monitor (4) Gastroparesis: (5) GERD (gastroesophageal reflux disease): pt with hx of esophagitis and gastroparesis Recent Colonoscopy as outpatient --Had polypectomy Previously evaluated at [facility] 2002 GES done in 2002 showing only 33% activity emptied by 120minutes Continue Pantoprazole 40mg BID Reglan 10mg q6h prn GI on board (6) Weight loss: reported 15lb weight loss since 05/19 Further work-up as outpatient (7) DVT prophylaxis: SQ Lovenox Code Status Full code Disposition Plan to discharge home today Admission and Anticipated Discharge Date Admission Date: June 02, 2020 Subjective States feeling a lot better today Denies nausea, vomiting, abdominal pain Had 1 loose BM today but diarrhea improving Appetite slowly improving Denies cough, chest pain, shortness of breath, dizziness Offers no other complaints Review of Systems Review of Systems: All systems reviewed & are unremarkable except as noted in HPI & below Physical Exam Physical Exam: Physical Exam: Vitals signs as noted above General Appearance: Moderately built and nourished, no apparent distress Head: normocephalic, Atraumatic Eyes: normal inspection, EOMI, SHIMA Neck: supple, Trachea midline Respiratory/Chest: Decreased breath sounds, CTA, No accessory muscle use Cardiovascular: S1, S2, No murmur Abdomen/GI:Soft, Non tender, Bowel sounds present, no guarding or rigidity Extremities/Musculoskeletal: normal inspection, no edema Neurologic/Psych: AAOX3, grossly no focal neurological deficits Skin: normal color, warm Results & Data Results & Data ([place]) Vital Signs (Past 12 Hours) Vital Signs Temp Pulse Resp BP Pulse Ox 06/04/20 08:00 36.6 C 65 18 133/74 97 Laboratory Results BMP 06/04/20 06:38 Sodium 142 Potassium 3.6 Chloride 111 H Carbon Dioxide 29 BUN 10 Creatinine 0.92 Glucose 81 Calcium 8.3 L (1) Abdominal pain Abdominal location: epigastric Qualified Code(s): R10.13 - Epigastric pain
--- NOTE | 2020-06-04 13:57 | Discharge Summary ---
Date of Service June 04, 2020 Admission HPI Per Admitting Provider This is a 60-year-old male who has significant past medical history of HTN, HLD, GERD, history of gastroparesis, history of melanoma, cerebral degeneration who presents to ED secondary to abdominal pain and ill feeling x2 weeks. Patient has been seen and evaluated in outside clinic x2, starting on 05/21. He states he was hunting with his buddies when on 05/19 he developed vague symptoms including chills, sweats, ill feeling, myalgias, nausea, loose stool and with upper quadrant abdominal pain. He was concerned he had Covid secondary to known exposure at [facility]. His initial screen was negative. Symptoms did not improve and he was having difficulty tolerating food or liquid. He was seen and evaluated again in clinic on 05/28 where he was retested for Covid. This again was negative. He was started on omeprazole and Protonix. He was seen in the ER on 05/30 and lab work was generally unremarkable and therefore he was discharged to home. He had a telemedicine visit with PCP today who offered further work-up but patient opted to present to ED. He states he continues to have chills but the sweats have resolved for about a week. He does occasionally feel dizzy when changing position, but denies syncope. He does have a very mild dry cough, nausea, epigastric and left upper quadrant abdominal pain that comes and goes, vomiting and inability to tolerate oral intake. Pain in left upper quadrant does not have a pattern. It is not worse with or after intake. He is moving bowels daily but describes it as loose. He has tried Pepto-Bismol which turned stools black, but this abated once he stopped using Pepto-Bismol. His last BM was today and was loose. Again pain with upper quadrant comes and goes, nothing makes better or worse, associate with a 10 to 15 pound weight loss in the past 2 weeks. He does not want to be discharged home due to inability to tolerate oral intake and continued weight loss. He has known tick bite 1 month ago. Lyme screen on 05/30 was negative and anaplasma still pending. He is currently prescribe doxycycline. Denies documented fever, lightheadedness, syncope, chest pain, shortness of breath, palpitations, MADRIGAL, hemoptysis, hematemesis, melena, dysuria, increased urgency or frequency with urination. As an outpatient he has tried omeprazole daily for about a week without improvement. He also tried Pepcid with no relief. According to outpatient records he does have a history in 2002 and a diagnosis of gastroparesis. States this somewhat feels similar to prior presentation, but much worse. In ED patient made hemodynamically stable, modestly hypertensive. CBC revealed a WBC low at 4.23k, H&H 15.2 and 42.5, platelet 170, BUN 10, creatinine 0.95, troponin and lipase WNL. He received IV Pepcid and GI cocktail in ED with mild improvement. Patient refusing discharge and requesting inpatient work-up. Principal Diagnosis Atypical pneumonia Colitis Adjustment disorder with mixed anxiety and depressed mood Discharge Exam Physical Exam Physical Exam: Constitutional: WD/WN, vitals as above, NAD, sitting up in bed, pleasant, conversing easily Head: Normocephalic, Atraumatic Eyes: PERRL, conjunctivae normal, anicteric sclerae ENMT: external ear and nose normal, oropharynx normal Neck: trachea midline, no thyromegaly normal visual inspection Respiratory: normal respiratory effort, lungs clear to auscultation, no wheeze, rales, rhonchi. Normal insp/exp effort, no accessory muscle use Cardiovascular: RRR, no murmur, no edema Vessels: no JVD or carotid bruit Chest: normal inspection of chest Abdomen: normal bowel sounds, soft, nontender, no hepatosplenomegaly Musculoskeletal: no cyanosis or clubbing, extremities motor strength 5/5 Skin: no rashes, warm and dry normal turgor Neurologic: PERRL, EOMI, accommodation nl, no face palsy, no dysarthria CN's II-XI intact bilaterally and moves all extremities Psychiatric: A+Ox3, euthymic affect Lymphatic: no cervical or axillary lymphadenopathy : deferred Discharge Data Allergies Allergy/AdvReac Type Severity Reaction Status Date / Time No Known Allergies Allergy Verified 06/01/20 13:46 Consultations 06/01/20 16:22 ED Decision to Admit Stat 06/01/20 18:44 Consult Gastroenterology Routine 06/02/20 18:24 Consult Case Management - Discharge Planning Routine Consult Neurology Routine 06/02/20 18:29 Consult Psychiatry Routine Procedures Performed -CT ABD:No evidence of bowel obstruction. No evidence of free air. Right-sided nephrolithiasis. No evidence of hydronephrosis. Prostatomegaly. Equivocal minimal right colonic wall thickening. A minimal colitis cannot be excluded. Right lower lobe ground glass pulmonary opacities, suspicious for a pneumonia. Correlation with Covid 19 testing is recommended. -CT Chest:Multifocal groundglass airspace opacities within the right lower lobe and a small left perihilar groundglass airspace opacity. This favors an atypical pneumonia. Correlation with Covid 19 testing recommended. Consider 3 month follow-up to ensure resolution. -MRI Brain:No acute intracranial findings. No evidence of acute or subacute infarction. No evidence of intracranial mass on this noncontrast examination -Head CTA:No evidence of aneurysm. No evidence of intracranial branch occlusion. No evidence of major stenosis. -Neck CTA:No evidence of hemodynamically significant carotid or vertebral artery stenosis. No evidence of dissection. Ordered Studies 06/01/20 12:46 CT abd pelvis IV con only Stat 06/01/20 16:56 CT chest wo con Stat 06/02/20 CT angio head w con Routine CT angio neck with con Routine CT head/brain wo con Routine MR brain wo con Routine Hospital Course (1) Abdominal pain: (2) Nausea: Patient is a 60 yr male with H/O HTN, HLD, GERD, history of gastroparesis, history of melanoma, cerebral degeneration who presents to ED secondary to abdominal pain and ill feeling x2 weeks. Nausea/Vomiting/Abdominal Pain/Diarrhea Likely secondary to colitis/gastroparesis DD:PUD -Admits to taking NSAIDs for chronic headache -CT ABD:No evidence of bowel obstruction. No evidence of free air. Right-sided nephrolithiasis. No evidence of hydronephrosis. Prostatomegaly. Equivocal minimal right colonic wall thickening. A minimal colitis cannot be excluded. Right lower lobe ground glass pulmonary opacities, suspicious for a pneumonia. Correlation with Covid 19 testing is recommended. -Stool Studies:Negative -Continue IV fluids -Appreciate GI Input -Continue PPI -Reglan PRN -Added Carafate -Tolerated Regular diet -May need upper endoscopy as outpatient Atypical Pneumonia -CT Chest:Multifocal groundglass airspace opacities within the right lower lobe and a small left perihilar groundglass airspace opacity. This favors an atypical pneumonia. Correlation with Covid 19 testing recommended. Consider 3 month follow-up to ensure resolution. COVID Screen: Negative Continue Rocephin, doxycycline Saturating well on room air Will transition to PO Abx upon discharge Abnormal CT Head Ruled out Acute/Subacute CVA Not a candidate for tPA- Passed the window period --CT head: Subtle nonspecific hypodensity within the left medial frontoparietal region. This potentially could represent a small acute/subacute infarct. An MRI could be obtained and follow-up as clinically appropriate. Equivocal left hyperdense left MCA sign. This may be artifactual, as this does not fit the reported clinical symptoms. -MRI Brain:No acute intracranial findings. No evidence of acute or subacute infarction. No evidence of intracranial mass on this noncontrast examination -Head CTA:No evidence of aneurysm. No evidence of intracranial branch occlusion. No evidence of major stenosis. -Neck CTA:No evidence of hemodynamically significant carotid or vertebral artery stenosis. No evidence of dissection. Appreciate Neurology Input Adjustment disorder with mixed anxiety and depressed mood Reported suicidal thoughts to family Currently denies any suicidal ideation Appreciate psychiatry input Patient is currently not interested in psychiatric treatment as documented H/O recent Tick Bite 1 month ago Continue doxycycline--started as outpatient Nephrolithiasis Incidental finding on CT scan Follow-up as outpatient H/O melanoma S/P surgery H/O cerebral degeneration As per records (3) Hypertension: continue lisinopril monitor (4) Gastroparesis: (5) GERD (gastroesophageal reflux disease): pt with hx of esophagitis and gastroparesis Recent Colonoscopy as outpatient --Had polypectomy Previously evaluated at [facility] 2002 GES done in 2002 showing only 33% activity emptied by 120minutes Continue Pantoprazole 40mg BID Reglan 10mg q6h prn GI on board (6) Weight loss: reported 15lb weight loss since 05/19 Further work-up as outpatient (7) DVT prophylaxis: SQ Lovenox Code Status Full code Disposition Plan to discharge home today Total Time Total Time Spent Total Time Spent (In Minutes): 40 minutes Total Time Includes: Examination of the Patient, Discharge Planning, Medication Reconciliation, Communication With Other Providers and Other Discharge Plan Discharge Items Patient Disposition: Home - Self-Care Reason For Visit: ABD PAIN Discharge Diagnosis: Atypical pneumonia Colitis Adjustment disorder with mixed anxiety and depressed mood Activity: Per Instructions section Exercise/Sports: Gradually increase as tolerated Non-emergency contact: Primary Care Provider and Manager Of Case Management Call non-emergency contact if: you have any medication questions, your symptoms worsen, your pain is not controlled, your pain is worsening, your pain is unusual for you, your pain is concerning for you and you have a fever Follow-up/Referrals: Marie Driver MD [Primary Care Provider] - (Date & Time 06/08/2020 11:00 AM Provider Marie Driver MD Department Internal Medicine [facility] ) Diet: Heart Healthy Addtl Attending Provider Instructions: Follow-up with your primary care physician Dr. Driver ON 06/08/2020 11:00 AM Follow-up with your safety engineer Dr. Sagastume in 4-6 weeks as outpatient If your symptoms persist, you may need an upper endoscopy as outpatient as advised by your safety engineer. Discuss with your physician for further work-up as outpatient if you continue to lose weight as advised. Complete antibiotic course (Doxycycline and Cefuroxime) as prescribed Avoid taking NSAIDs like ibuprofen, Aleve, Motrin, naproxen etc. as advised Seek immediate medical attention if your symptoms reoccur or worsen Pending Studies at Discharge: No Stand-Alone Forms: My [facility] [employer], Smoking Cessation Medications and DC Order Prescriptions: New sucralfate 1 gram Tablet 1 g PO QID 7 Days Qty: 28 RF: 0 cefuroxime axetil 500 mg tablet 500 mg PO BID Qty: 10 RF: 0 pantoprazole 40 mg tablet,delayed release (DR/EC) 40 mg PO BID 30 Days Qty: 60 RF: 0 Continued lisinopril 10 mg tablet 10 mg PO QAM RF: 0 vitamin E 400 unit Tablet 450 mg PO QAM RF: 0 cholecalciferol (vitamin D3) [Vitamin D3] 25 mcg (1,000 unit) Tablet 25 mcg PO QAM RF: 0 ondansetron HCl [Zofran] 4 mg tablet 4 mg PO TID PRN (Reason: nausea and vomiting) 5 Days Qty: 15 RF: 0 doxycycline hyclate 100 mg tablet 100 mg PO Q12H 7 Days Qty: 14 RF: 0 diazepam [Valium] 5 mg tablet 5 mg PO Q8H PRN (Reason: musce spasm) Qty: 10 RF: 0 Discontinued ibuprofen 100 mg/5 mL Suspension 200 mg PO Q6H PRN (Reason: fever/pain) RF: 0 Discharge Orders: Discharge Order (Routine); Ordered 06/04/20 Ordered By: Casimiro Huggins/Other Patient Handouts: Gastroparesis Admission Data Admit Date/Time: 06/02/20 20:51 Attending Provider: Casimiro Askew Admit Provider: Adis Coleman Primary Care Provider: Marie Driver Other Providers: Adis Coleman ; Raudel Sagastume ; Leandro Redd ; Mellissa Huddleston Other Interventions: Discharge Summary Assessment (RN) Last Done: 06/04/20 14:38
== END 2020-06-04 15:45 | disposition home or self-care (01) | DRG 391 ==
LOC: 2W 11:44 → ED 11:44 → SUATTDRO 16:31 → 2W 17:54

== ENCOUNTER 2020-12-08 02:40 | Inpatient (IN) ==
[2020-12-08] MEDS ORDERED: HYDROmorphone INJ 1 MG/ML SYRINGE IV STA (02:57)
[2020-12-08] MEDS ORDERED: ONDANSETRON INJ 2 MG/ML 2 ML VIAL IV STA (02:57)
[2020-12-08] MEDS ORDERED: KETOROLAC TROMETHAMINE 15 MG/ML VIAL IV STA (02:59)
[2020-12-08] MEDS ORDERED: SODIUM CHLORIDE 0.9% 1000ML 1,000 ML IV SCH (03:00)
[2020-12-08 03:18] LABS: Basophils # (auto) 0.01 K/uL (0-0.2); Basophils % (auto) 0.1 %; Eosinophils # (auto) 0.02 K/uL (0-0.5); Eosinophils % (auto) 0.2 %; Hematocrit (blood only) 44.8 % (42-52); Hemoglobin 15.9 g/dL (14.0-18.0); Immature Granulocytes # (auto) 0.04 K/uL (0.00-0.02); Immature Granulocytes % (auto) 0.3 %; Lymphocytes # (auto) 2.11 K/uL (1.2-3.4); Lymphocytes % (auto) 16.1 %; Mean Corpuscular Hemoglobin 29.9 pg (25-34); Mean Corpuscular Hgb Conc 35.5 g/dL (32-36); Mean Corpuscular Volume 84.2 fL (80-100); Monocytes # (auto) 0.99 K/uL (0.11-0.59); Monocytes % (auto) 7.6 %; Neutrophils % (auto) 75.7 %; Platelet Count 195 K/uL (130-400); RDW Coefficient of Variation 13.3 % (11.5-14.5); RDW Standard Deviation 40.1 fL (36.4-46.3); Red Blood Count 5.32 M/uL (4.7-6.1); White Blood Count 13.07 K/uL (4.8-10.8)
[2020-12-08 03:45] LABS: Albumin Level 3.9 gm/dl (3.4-5.0); BUN Creatinine Ratio 11.1 (10-20); Calcium 8.8 mg/dl (8.5-10.1); Creatinine Clr Calc Pharmacy 56.5 ml/min; Est GFR (African American) 51.9 ml/min; Est GFR (Non-African American) 44.8 ml/min
[2020-12-08 03:48] LABS: Albumin Globulin Ratio 1.2 (0.9-2); Bilirubin,Total 0.9 mg/dl (0.2-1); Globulin 3.2 gm/dl (2.5-4.0); Total Protein 7.1 gm/dl (6.4-8.2)
[2020-12-08 05:52] LABS: Appearance Urine Clear (Clear); Bacteria Urine Automated Negative (Negative); Bilirubin Urine Negative (Negative); Blood Urine 2+ (Negative); Cast Urine Automated 0 /lpf (0-5); Color Urine Yellow; Glucose Urine UA Negative (Negative); Ketones Urine Negative (Negative); Leukocyte Esterase Urine Negative (Negative); Nitrite Urine Negative (Negative); Protein Urine Negative (Negative); Specific Gravity Urine 1.012 (1.000-1.030); Urobilinogen Urine Negative (Negative); pH Urine 7.5 (4.5-7.5)
--- NOTE | 2020-12-08 06:31 | Emergency Department Note ---
History of Present Illness General Chief complaint: Kidney Stone Stated complaint: kidney stone Time Seen by Provider: 12/08/20 02:49 History of Present Illness Maximum Pain Intensity: 2 This is a 60-year-old male presenting to the emergency department for return of right-sided flank pain. The patient was initially seen and evaluated yesterday at this facility where evaluation did reveal right-sided ureteral calculi. The patient appears to have several proximal stones measuring up to 5 mm in size. At that visit the patient did want to go home and trial home medications, however he is not able to get his pain under control this evening. He has not had fevers or chills. The patient is very nauseated and has had vomiting. He rates his discomfort a 9/10. He states he felt significantly better while in the ER yesterday after pain control. Home Medications Medication Instructions Recorded Confirmed Type lisinopril 10 mg tablet 10 mg PO QAM 04/15/19 12/08/20 History ondansetron 4 mg PO Q4H PRN #8 tab 12/07/20 12/08/20 Rx oxycodone 5 - 10 mg PO Q4H PRN #14 tab 12/07/20 12/08/20 Rx Allergies Allergy/AdvReac Type Severity Reaction Status Date / Time No Known Allergies Allergy Verified 12/08/20 02:54 Past Med/Surg History Medical History Adjustment disorder with mixed anxiety and depressed mood Cerebral degeneration documented in epic Family history of melanoma Gastroparesis Gastric emptying study 09/15/2002 revealed delayed solid gastric emptying exam with only 33% of activity emptied by 120 minutes. GERD (gastroesophageal reflux disease) HLD (hyperlipidemia) Hypertension Surgical History History of cholecystectomy Hx of local excision of skin lesion melanoma back of head Family History Sister Melanoma Social History Smoking Status: Never smoker Tobacco Type: Smokeless Tobacco (Dip or Chew) Second Hand Exposure: No; Do You Dip or Chew Tobacco: Yes; Tobacco Cessation Education Requested by Patient: No Hx Alcohol Use: Yes Alcohol type: hard liquor Alcohol Intake Frequency: Monthly or Less Hx Substance Use: No Preferred Language: Amharic Communication Ability: Effective Departmental Secretary Required: No Beliefs That Will Affect Care: None marital status: Current Living Situation: Spouse current occupational status: retired Other Information That Helps Us Care for You: No Feels Safe at Home: Yes Safety Concerns: Feels Safe At This Time Assistive Devices: None Review of Systems A total of 10 systems reviewed and were otherwise negative Physical Exam Vital Signs Vital Signs - 24 hr 12/08/20 02:42 12/08/20 03:15 12/08/20 03:18 Temperature 36.5 C Temperature Source Temporal Artery Scan Pulse Rate 74 68 Pulse Rate from SpO2 Sensor 69 Respiratory Rate 16 16 Respiratory Effort / Characteristics Non-Labored Spontaneous Respiratory Depth Normal Respiratory Pattern Regular Blood Pressure 164/99 H 149/96 H Blood Pressure Mean 120 113 Blood Pressure Position Lying Pulse Oximetry 97 99 Oxygen Delivery Method Room Air Room Air Sepsis Recent Fever Within 48 Hours No Sepsis New/Unexplained Change in Mental Status No Sepsis Action Taken by Nursing No Action Required 12/08/20 03:40 12/08/20 04:00 12/08/20 04:30 Temperature Temperature Source Pulse Rate 65 67 66 Pulse Rate from SpO2 Sensor 65 67 66 Respiratory Rate 7 L 10 L 9 L Respiratory Effort / Characteristics Respiratory Depth Respiratory Pattern Blood Pressure 162/82 H 149/79 H 157/79 H Blood Pressure Mean 108 102 105 Blood Pressure Position Pulse Oximetry 99 100 99 Oxygen Delivery Method Room Air Room Air Room Air Sepsis Recent Fever Within 48 Hours Sepsis New/Unexplained Change in Mental Status Sepsis Action Taken by Nursing VITALS: Vitals are noted on the nurse's note and reviewed by myself. Vital signs stable. GENERAL: Well-developed, well-nourished, white male, who is in moderate to significant discomfort. He is holding an emesis bag with vomiting. He is l aying on his side in the ER bed. HEAD: Normocephalic atraumatic. HEART: Regular rate and rhythm without murmurs gallops or rubs. LUNGS: Clear to auscultation bilaterally without wheezes, rales or rhonchi. No retractions or accessory muscle use. ABDOMEN: Positive normal bowel sounds x 4. Soft, nontender, without masses or organomegaly. No guarding or rebound tenderness. MUSCULOSKELETAL: No muscle atrophy, erythema, or edema noted. Full range of motion in all extremities. NEURO: Patient was alert and oriented to person place and time. CN II through XII grossly intact. Course Administered Medications Acetaminophen (Acetaminophen Susp 325 Mg/10.15 Ml Udc) 650 mg PO Q6H PRN PRN Reason: Pain or Fever Stop: 01/07/21 20:26 Last Admin: 12/08/20 20:41 Dose: 650 mg Documented by: [id number] Hydromorphone HCl (Hydromorphone Inj 0.5 Mg/0.5 Ml Syr) 0.5 mg IV Q3H PRN PRN Reason: Pain Stop: 12/22/20 08:14 Last Admin: 12/08/20 10:03 Dose: 0.5 mg Documented by: [id number] Ceftriaxone Sodium 2,000 mg/ (Dextrose) 70 mls @ 100 mls/hr IV Q24H ANA; Protocol Stop: 12/18/20 09:59 Last Infusion: 12/08/20 11:24 Dose: 0 mls/hr Documented by: [id number] Admin: 12/08/20 10:38 Dose: 100 mls/hr Documented by: [id number] Sodium Chloride (Nss 1000ml) 1,000 mls @ 125 mls/hr IV .Q8H ANA Stop: 01/07/21 08:14 Last Admin: 12/08/20 22:01 Dose: 125 mls/hr Documented by: [id number] Infusion: 12/08/20 22:01 Dose: 125 mls/hr Documented by: [id number] Admin: 12/08/20 16:42 Dose: 125 mls/hr Documented by: [id number] Infusion: 12/08/20 16:42 Dose: 125 mls/hr Documented by: [id number] Admin: 12/08/20 10:03 Dose: 125 mls/hr Documented by: [id number] Tamsulosin HCl (Tamsulosin Hcl 0.4 Mg Cap) 0.4 mg PO QAM [facility] Stop: 01/07/21 08:59 Last Admin: 12/08/20 10:11 Dose: Not Given Documented by: [id number] Discontinued Medications Hydromorphone HCl (Hydromorphone Inj 1 Mg/Ml Syringe) 1 mg IV NOW [facility] Stop: 12/08/20 02:58 Last Admin: 12/08/20 03:26 Dose: 1 mg Documented by: [id number] Sodium Chloride (Nss 1000ml) 1,000 mls @ 999 mls/hr IV .Q1H1M ANA Stop: 12/08/20 04:00 Last Infusion: 12/08/20 07:23 Dose: 0 mls/hr Documented by: [id number] Admin: 12/08/20 03:24 Dose: 999 mls/hr Documented by: [id number] Promethazine HCl 6.25 mg/ (Sodium Chloride) 50.25 mls @ 201 mls/hr IV NOW STA Stop: 12/08/20 09:48 Last Infusion: 12/08/20 10:19 Dose: 0 mls/hr Documented by: [id number] Admin: 12/08/20 10:03 Dose: 201 mls/hr Documented by: [id number] Famotidine 20 mg/ Syringe 5 mls @ 2.5 mls/min IV ONE ONE Stop: 12/08/20 10:16 Last Admin: 12/08/20 10:04 Dose: 2.5 mls/min Documented by: [id number] Ketorolac Tromethamine (Ketorolac Tromethamine 15 Mg/Ml Vial) 15 mg IV NOW STA Stop: 12/08/20 03:00 Last Admin: 12/08/20 03:24 Dose: 15 mg Documented by: [id number] Ondansetron HCl (Ondansetron Inj 2 Mg/Ml 2 Ml Vial) 4 mg IV NOW STA Stop: 12/08/20 02:58 Last Admin: 12/08/20 03:24 Dose: 4 mg Documented by: [id number] Medical Decision Making Differential Diagnosis Differential diagnosis: Etiologies such as shingles, pyelonephritis/UTI, renal colic, appendicitis, diverticulitis, mesenteric ischemia, torsion, aortic pathology, infections, inflammatory bowel disease, bowel obstruction, PUD, biliary pathology, as well as others were entertained. Laboratory Data Result diagrams: 12/08/20 03:08 12/08/20 03:08 Lab Results 12/08/20 12/08/20 12/08/20 Range/Units 03:08 03:08 04:08 WBC 13.07 H (4.8-10.8) K/uL RBC 5.32 (4.7-6.1) M/uL Hgb 15.9 (14.0-18.0) g/dL Hct 44.8 (42-52) % MCV 84.2 (80-100) fL MCH 29.9 (25-34) pg MCHC 35.5 (32-36) g/dL RDW Std Deviation 40.1 (36.4-46.3) fL RDW Coeff of Pollo 13.3 (11.5-14.5) % Plt Count 195 (130-400) K/uL MPV 9.0 (7.4-10.4) fL Immature Gran % (Auto) 0.3 % Neut % (Auto) 75.7 % Lymph % (Auto) 16.1 % Ceiba % (Auto) 7.6 % Eos % (Auto) 0.2 % Baso % (Auto) 0.1 % Neut # (Auto) 9.90 H (1.4-6.5) K/uL Lymph # (Auto) 2.11 (1.2-3.4) K/uL [place] # (Auto) 0.99 H (0.11-0.59) K/uL Eos # (Auto) 0.02 (0-0.5) K/uL Baso # (Auto) 0.01 (0-0.2) K/uL Immature Gran # (Auto) 0.04 H (0.00-0.02) K/uL Sodium 142 (136-145) mmol/L Potassium 4.0 (3.5-5.1) mmol/L Chloride 111 H (98-107) mmol/L Carbon Dioxide 25 (21-32) mmol/L Anion Gap 6.0 (3-11) BUN 18 (7-18) mg/dl Creatinine 1.62 H (0.6-1.4) mg/dl Est Cr Clr Drug Dosing 56.5 ml/min Est GFR ( Amer) 51.9 ml/min Est GFR (Non-Af Amer) 44.8 ml/min BUN/Creatinine Ratio 11.1 (10-20) Glucose 120 H (70-99) mg/dl Calcium 8.8 (8.5-10.1) mg/dl Total Bilirubin 0.9 D (0.2-1) mg/dl AST 18 (15-37) U/L ALT 34 (12-78) U/L Alkaline Phosphatase 112 (45-117) U/L Total Protein 7.1 (6.4-8.2) gm/dl Albumin 3.9 (3.4-5.0) gm/dl Globulin 3.2 (2.5-4.0) gm/dl Albumin/Globulin Ratio 1.2 (0.9-2) Urine Color Urine Appearance (Clear) Urine pH (4.5-7.5) Ur Specific [place] (1.000-1.030) Urine Protein (Negative) Urine Glucose (UA) (Negative) Urine Ketones (Negative) Urine Blood (Negative) Urine Nitrite (Negative) Urine Bilirubin (Negative) Urine Urobilinogen (Negative) Ur Leukocyte Esterase (Negative) Urine WBC (Auto) (0-5) /hpf Urine RBC (Auto) (0-4) /hpf U Hyaline Cast (Auto) (0-5) /lpf U Epithel Cells (Auto) (0-5) /lpf Urine Bacteria (Auto) (Negative) COVID-19 Eval Order Covid19 at [facility] SARS-CoV-2 (PCR) (Negative) 12/08/20 12/08/20 Range/Units 04:08 05:40 WBC (4.8-10.8) K/uL RBC (4.7-6.1) M/uL Hgb (14.0-18.0) g/dL Hct (42-52) % MCV (80-100) fL MCH (25-34) pg MCHC (32-36) g/dL RDW Std Deviation (36.4-46.3) fL RDW Coeff of Pollo (11.5-14.5) % Plt Count (130-400) K/uL MPV (7.4-10.4) fL Immature Gran % (Auto) % Neut % (Auto) % Lymph % (Auto) % [place] % (Auto) % Eos % (Auto) % Baso % (Auto) % Neut # (Auto) (1.4-6.5) K/uL Lymph # (Auto) (1.2-3.4) K/uL [place] # (Auto) (0.11-0.59) K/uL Eos # (Auto) (0-0.5) K/uL Baso # (Auto) (0-0.2) K/uL Immature Gran # (Auto) (0.00-0.02) K/uL Sodium (136-145) mmol/L Potassium (3.5-5.1) mmol/L Chloride (98-107) mmol/L Carbon Dioxide (21-32) mmol/L Anion Gap (3-11) BUN (7-18) mg/dl Creatinine (0.6-1.4) mg/dl Est Cr Clr Drug Dosing ml/min Est GFR ( Amer) ml/min Est GFR (Non-Af Amer) ml/min BUN/Creatinine Ratio (10-20) Glucose (70-99) mg/dl Calcium (8.5-10.1) mg/dl Total Bilirubin (0.2-1) mg/dl AST (15-37) U/L ALT (12-78) U/L Alkaline Phosphatase (45-117) U/L Total Protein (6.4-8.2) gm/dl Albumin (3.4-5.0) gm/dl Globulin (2.5-4.0) gm/dl Albumin/Globulin Ratio (0.9-2) Urine Color Yellow Urine Appearance Clear (Clear) Urine pH 7.5 (4.5-7.5) Ur Specific [place] 1.012 (1.000-1.030) Urine Protein Negative (Negative) Urine Glucose (UA) Negative (Negative) Urine Ketones Negative (Negative) Urine Blood 2+ H (Negative) Urine Nitrite Negative (Negative) Urine Bilirubin Negative (Negative) Urine Urobilinogen Negative (Negative) Ur Leukocyte Esterase Negative (Negative) Urine WBC (Auto) 1-5 (0-5) /hpf Urine RBC (Auto) 5-10 H (0-4) /hpf U Hyaline Cast (Auto) 0 (0-5) /lpf U Epithel Cells (Auto) 5-10 H (0-5) /lpf Urine Bacteria (Auto) Negative (Negative) COVID-19 Eval Order SARS-CoV-2 (PCR) NEGATIVE (Negative) Imaging Data Radiologist's Impression: Retrograde Pyelogram 12/08/20 00:00 [place] retrograde includes kub CLINICAL HISTORY: RT STENT COMPARISON STUDY: CT scan dated 12/07/2020 FLUOROSCOPY TIME: 6 seconds. NUMBER OF FLUOROSCOPIC IMAGES: 3 FINDINGS: 3 fluoroscopic spot images demonstrate retrograde catheterization the right ureter. A right-sided left ureteral stent was placed. The proximal pigtail is not fully formed. IMPRESSION: Retrograde study demonstrating placement of a right-sided nephroureteral stent ACT 112: Negative or not required by law. Electronically signed by: Bunny Linares M.D. 12/08/2020 2:05 PM [facility] Narrative Physical exam and history were performed. Nursing notes, EMR, and Medication List were personally reviewed. Patient appears to have return of right flank pain. He appears quite uncomfortable on exam. IV access was established and labs were obtained. The patient was hydrated with normal saline and given IV Dilaudid, IV Toradol, and IV Zofran for comfort. The patient's blood work is as above and was reviewed. He does have a slightly elevated white blood cell count, and this is increased from yesterday. He does not have significant anemia, or gross electrolyte imbalance. Creatinine is slightly elevated when compared to yesterday. Urine is with blood but no gross evidence of infection. The patient was reevaluated multiple times at the course of his stay. He had notable improvement of his pain after treatment. He does not feel well for discharge home, and with worsening labs and multiple ureteral calculi I elected to discuss the case with the on-call hospitalist team. Please see their dictation for further patient course, plan, and disposition. The chart was completed utilizing [employer] Speech Voice Recognition Software. G rammatical errors, random word insertions, pronoun errors, and incomplete sentences are an occasional consequence of this system due to software limitations, ambient noise, and hardware issues. Any formal questions or concerns about the content, text, or information contained within the body of this dictation should be directly addressed to the provider for clarification. . Impression & Plan Acute right flank pain, Hematuria, Ureterolithiasis Discharge Plan Visit Data Chief Complaint: Kidney Stone Stated Complaint: kidney stone ED Provider: Courtney Childress ED Midlevel Provider: Chuck Liu Discharge Problem: Acute right flank pain, Hematuria, Ureterolithiasis Patient Disposition: Admitted As Inpatient Discharge Instructions Interventions: ED Discharge Assessment Last Done: 12/08/20 07:59
[2020-12-08] MEDS ORDERED: HYDROmorphone INJ 0.5 MG/0.5 ML SYR IV PRN (08:15)
[2020-12-08] MEDS ORDERED: hydrALAZINE HCL 20 MG/ML VIAL IV PRN (08:15)
[2020-12-08] MEDS ORDERED: oxyCODONE HCL IR 5 MG TAB (IMMEDIATE RELEASE) PO PRN (08:15)
[2020-12-08] MEDS ORDERED: PROMETHAZINE HCL 6.25 MG in SODIUM CHLORIDE 0.9% 50 ML IV STA (09:34)
[2020-12-08] MEDS: SODIUM CHLORIDE 0.9% 1000ML 1,000 ML IV SCH ×3 (10:03→22:01)
[2020-12-08] MEDS: TAMSULOSIN HCL 0.4 MG CAP PO SCH ×2 (10:04→10:11)
[2020-12-08] MEDS ORDERED: FAMOTIDINE 20 MG in SYRINGE 3 ML IV ONE (10:15)
--- NOTE | 2020-12-08 10:29 | Urology Consultation ---
Date of Consultation December 08, 2020 Assessment & Plan (1) Acute right flank pain: (2) Ureterolithiasis: Patient with multiple obstructing right ureteral calculi and uncontrolled pain. We discussed right ureteral stent placement today. The patient is agreeable. Risks and benefits explained. Patient to OR today for stent placement. Present on Admission?: Yes History of Present Illness Attending Physician: Adis Coleman MD 60 yo male with a recent [facility] this AM for uncontrolled pain secondary to multiple obstructing stones within the right proximal ureter. Patient reports significant pain. No fevers. + nausea. No vomiting. No CP or SOB. He denies any other health issues other than HTN. He has had stones in the past requiring urteroscopy/stent as well as ESWL. He typically follows with Dr. Merrill. Allergies Allergy/AdvReac Type Severity Reaction Status Date / Time No Known Allergies Allergy Verified 12/08/20 02:54 Home Medications Medication Instructions Recorded Confirmed Type lisinopril 10 mg tablet 10 mg PO QAM 04/15/19 12/08/20 History ondansetron 4 mg PO Q4H PRN #8 tab 12/07/20 12/08/20 Rx oxycodone 5 - 10 mg PO Q4H PRN #14 tab 12/07/20 12/08/20 Rx Patient History Medical History Adjustment disorder with mixed anxiety and depressed mood Cerebral degeneration documented in epic Family history of melanoma Gastroparesis Gastric emptying study 09/15/2002 revealed delayed solid gastric emptying exam with only 33% of activity emptied by 120 minutes. GERD (gastroesophageal reflux disease) HLD (hyperlipidemia) Hypertension Surgical History History of cholecystectomy Hx of local excision of skin lesion melanoma back of head Family History Sister Melanoma Social History Smoking Status: Never smoker Tobacco Type: Smokeless Tobacco (Dip or Chew) Second Hand Exposure: No; Do You Dip or Chew Tobacco: Yes; Tobacco Cessation Education Requested by Patient: No Hx Alcohol Use: Yes Alcohol type: hard liquor Alcohol Intake Frequency: Monthly or Less Hx Substance Use: No Preferred Language: Indonesian Communication Ability: Effective Director [employer] Required: No Beliefs That Will Affect Care: None marital status: Current Living Situation: Spouse current occupational status: retired Other Information That Helps Us Care for You: No Feels Safe at Home: Yes Safety Concerns: Feels Safe At This Time Assistive Devices: Denture - Upper Review of Systems Review of Systems: All systems reviewed & are unremarkable except as noted in HPI & below Physical Exam Physical Exam: Patient is in pain - NAD AVSS nonlabored regular rate soft NT right CVA tenderness AOx 3 normal mood no edema in extremities Results & Data ([facility]) Vital Signs (Past 12 Hours) Vital Signs Temp Pulse Pulse Resp BP BP Pulse Ox 12/08/20 08:10 36.8 C 62 18 148/77 H 95 12/08/20 07:59 87 18 148/109 H 98 12/08/20 04:30 66 9 L 157/79 H 99 12/08/20 04:00 67 10 L 149/79 H 100 12/08/20 03:40 65 7 L 162/82 H 99 12/08/20 03:18 68 16 149/96 H 99 12/08/20 02:42 36.5 C 74 16 164/99 H 97 PG Care Time/CCT Total # of Minutes Spent Total Time Spent with Patient: Total time spent is greater than 50% in coordination of care (as documented) at patient's floor/unit and/or counseling patient: [place] [address] Inpt Consult Level 4 Patient Type New History Detailed Exam Detailed Medical Decision Making Moderate Complexity Diagnoses Acute right flank pain R10.9 Ureterolithiasis N20.1 Time Spent (min) 25
[2020-12-08] MEDS: cefTRIAXone SODIUM 2,000 MG in DEXTROSE 5% 50 ML IV SCH (10:38)
--- NOTE | 2020-12-08 11:18 | Hospitalist Progress Note ---
Date of Service December 08, 2020 Assessment & Plan Admission and Anticipated Discharge Date Admission Date: December 08, 2020 Subjective Patient admitted early this morning, currently resting in bed, in no acute distr ess. Previously complained of nausea, also had some left upper chest discomfort, patient reports this has been there for 1 to 2 weeks. Comes and goes. Main reason why patient presented back to the hospital is pain due to kidney stones. He was seen by urologist and plan is for OR for stent placement. Currently denies any chest pain, shortness of breath, nausea or vomiting. Comfortable, sleepy after pain medications. Troponin was obtained and is negative. Patient is on telemetry. Echo also ordered. Gertrudis Coleman MD Results & Data Results & Data ([facility]) Vital Signs (Past 12 Hours) Vital Signs Temp Pulse Pulse Resp BP BP Pulse Ox 12/08/20 10:55 65 12/08/20 08:10 36.8 C 62 18 148/77 H 95 12/08/20 07:59 87 18 148/109 H 98 12/08/20 04:30 66 9 L 157/79 H 99 12/08/20 04:00 67 10 L 149/79 H 100 12/08/20 03:40 65 7 L 162/82 H 99 12/08/20 03:18 68 16 149/96 H 99 12/08/20 02:42 36.5 C 74 16 164/99 H 97
--- NOTE | 2020-12-08 11:42 | Anesthesiology Consultation ---
Date of Service December 08, 2020 Assessment & Plan Chart Review Chart Review: Acceptable Risk for Surgery and Patient NOT seen in Pre Admission Testing Consults Requested none ASA [id number] Proposed Anesthesia Anesthesia Type: General Additional Comments: covid test negative History Surgery Operation Date: 12/08/20 13:30 Proposed Procedures p Cystoscopy, Right Ureteral Stent Placement - Jeanne Bazan MD Height/Weight Height: 6 ft 3 in Weight: 101.2 kg Allergies Allergy/AdvReac Type Severity Reaction Status Date / Time No Known Allergies Allergy Verified 12/08/20 02:54 Medications Home Medications Medication Instructions Recorded Confirmed Last Taken lisinopril 10 mg tablet 10 mg PO QAM 04/15/19 12/08/20 06/01/20 ondansetron 4 mg PO Q4H PRN #8 tab 12/07/20 12/08/20 Unknown oxycodone 5 - 10 mg PO Q4H PRN #14 tab 12/07/20 12/08/20 Unknown Active Medications Generic Name Dose Route Start Last Admin Trade Name Freq PRN Reason Stop Dose Admin Hydromorphone HCl 0.5 mg 12/08/20 08:15 12/08/20 10:03 Hydromorphone Inj 0.5 Mg/0.5 Ml Syr IV 12/22/20 08:14 0.5 mg Q3H PRN Administration Pain Ceftriaxone Sodium 2,000 mg/ 70 mls @ 100 mls/hr 12/08/20 10:00 12/08/20 11:24 Dextrose IV 12/18/20 09:59 Infused Q24H ANA Infusion Protocol Sodium Chloride 1,000 mls @ 125 mls/hr 12/08/20 08:15 12/08/20 10:03 Nss 1000ml IV 01/07/21 08:14 125 mls/hr .Q8H ANA Administration Tamsulosin HCl 0.4 mg 12/08/20 09:00 12/08/20 10:11 Tamsulosin Hcl 0.4 Mg Cap PO 01/07/21 08:59 Not Given QAM ANA Past Medical History Medical History Adjustment disorder with mixed anxiety and depressed mood Cerebral degeneration documented in epic Family history of melanoma Gastroparesis Gastric emptying study 09/15/2002 revealed delayed solid gastric emptying exam with only 33% of activity emptied by 120 minutes. GERD (gastroesophageal reflux disease) HLD (hyperlipidemia) Hypertension Exercise / Class Metabolic Activity II 4-5 Yardwork/Stairs/Walk up hill Past Family History Family History Sister Melanoma Past Surgical History Surgical History History of cholecystectomy Hx of local excision of skin lesion melanoma back of head Past Anesthesia History No Hx of Anesthesia Complications and No Family Hx of Anesthesia Complications History of PONV No Hx of PONV and No Hx of Motion Sickness Social History Smoking Status: Never smoker tobacco type: smokeless tobacco Do You Dip or Chew Tobacco: Yes Hx Alcohol Use: Yes Alcohol type: hard liquor alcohol intake frequency: a few times a month Hx Substance Use: No Physical Exam Vital Signs Last Vital Signs Temp 36.5 C 12/08/20 11:22 Pulse 58 L 12/08/20 11:22 Resp 18 12/08/20 11:22 BP 189/92 H 12/08/20 11:22 Pulse Ox 95 12/08/20 11:22 Testing Laboratory Results 12/08/20 03:08 12/08/20 03:08 Urine Color Yellow 12/08/20 05:40 Urine Appearance Clear (Clear) 12/08/20 05:40 Urine pH 7.5 (4.5-7.5) 12/08/20 05:40 Ur Specific [place] 1.012 (1.000-1.030) 12/08/20 05:40 Urine Protein Negative (Negative) 12/08/20 05:40 Urine Glucose (UA) Negative (Negative) 12/08/20 05:40 Urine Ketones Negative (Negative) 12/08/20 05:40 Urine Nitrite Negative (Negative) 12/08/20 05:40 Ur Leukocyte Esterase Negative (Negative) 12/08/20 05:40 Urine WBC (Auto) 1-5 /hpf (0-5) 12/08/20 05:40 Urine RBC (Auto) 5-10 /hpf (0-4) H 12/08/20 05:40 U Hyaline Cast (Auto) 0 /lpf (0-5) 12/08/20 05:40 U Epithel Cells (Auto) 5-10 /lpf (0-5) H 12/08/20 05:40 Urine Bacteria (Auto) Negative (Negative) 12/08/20 05:40 Electrocardiogram Date: 06/01/20 Findings: + NSR @ (at 62;LAD;) and + NSST changes Chest X-Ray Date: 06/01/20 Findings: + NAD Echocardiogram Date: 06/02/20 EF: 55% LV Function: normal RWMA: + none Other Findings: + LVH (mild) and + diastolic dysfunction (grade 1) Other Testing 06/01/2020-Neck CTA-no evidence ofH/D significant carotid or vertebral artery stenosis
[2020-12-08] MEDS ORDERED: MIDAZOLAM HCL 1 MG/ML 2ML VIAL ONE (13:10)
[2020-12-08] MEDS ORDERED: fentaNYL citrate 100 MCG/2 ML VIAL ONE (13:10)
[2020-12-08] MEDS ORDERED: LIDOCAINE 2% 2 ML VIAL/AMP(20MG/ML) INFIL ONE (13:11)
[2020-12-08] MEDS ORDERED: PROPOFOL IV EMULSION 10 MG/ML 20 ML VIAL IV ONE (13:12)
[2020-12-08] MEDS ORDERED: ONDANSETRON INJ 2 MG/ML 2 ML VIAL ONE (13:12)
[2020-12-08] MEDS ORDERED: DIATRIZOATE MEGLUMINE 30% 100ML VIAL INSTIL PRN (13:13)
[2020-12-08] MEDS ORDERED: ATROPINE SULFATE 0.1 MG/ML 10ML SYR IV PRN (13:27)
[2020-12-08] MEDS ORDERED: NALOXONE HCL 0.4 MG/1 ML VIAL/CARP IV PRN (13:27)
[2020-12-08] MEDS ORDERED: PROMETHAZINE HCL 12.5 MG in SODIUM CHLORIDE 0.9% 50 ML IV PRN (13:27)
[2020-12-08] MEDS ORDERED: FLUMAZENIL 0.1 MG/1 ML 10 ML VIAL IV PRN (13:27)
[2020-12-08] MEDS ORDERED: ePHEDrine sulfate 50 MG/ML AMP IV PRN (13:27)
[2020-12-08] MEDS ORDERED: ONDANSETRON INJ 2 MG/ML 2 ML VIAL IV PRN (13:27)
[2020-12-08] MEDS ORDERED: fentaNYL citrate 100 MCG/2 ML VIAL IV PRN (13:27)
[2020-12-08] MEDS ORDERED: LABETALOL HCL IV 5 MG/ML 20ML IV PRN (13:27)
--- NOTE | 2020-12-08 14:02 | Post Operative Brief Note ---
PG Immediate Post Op with CF Date of Surgery December 08, 2020 Pre & Post Diagnosis Operation Date: 12/08/20 13:30 Pre-Op Diagnosis: Right kidney stone. Post-Op Diagnosis: Right kidney stone. I identified the patient and participated in the time-out.: Yes Procedure Operation Date: 12/08/20 13:30 Actual Procedures p Cystoscopy, Right Ureteral Stent Placement(Right) - Jeanne Bazan MD Surgeon Jeanne Bazan MD Airframe And Powerplant Mechanic none Estimated Blood Loss 0 Findings Consistent with Post-Op Diagnosis
--- NOTE | 2020-12-08 14:06 | Fluoroscopy Report ---
[place] retrograde includes kub CLINICAL HISTORY: RT STENT COMPARISON STUDY: CT scan dated 12/07/2020 FLUOROSCOPY TIME: 6 seconds. NUMBER OF FLUOROSCOPIC IMAGES: 3 FINDINGS: 3 fluoroscopic spot images demonstrate retrograde catheterization the right ureter. A right -sided left ureteral stent was placed. The proximal pigtail is not fully formed. IMPRESSION: Retrograde study demonstrating placement of a right-sided nephroureteral stent ACT 112: Negative or not required by law. Electronically signed by: Bunny Linares M.D. 12/08/2020 2:05 PM
--- NOTE | 2020-12-08 14:07 | Operative Report ---
PG Post Operative Report Pre & Post Diagnosis Operation Date: 12/08/20 13:30 Pre-Op Diagnosis: Right kidney stone. Post-Op Diagnosis: Right kidney stone. I identified the patient and participated in the time-out.: Yes Procedure Operation Date: 12/08/20 13:30 Actual Procedures p Cystoscopy, Right Ureteral Stent Placement(Right) - Jeanne Bazan MD Surgeon Jeanne Bazan MD [employer] Assistant [employer] none Estimated Blood Loss 0 Findings Consistent with Post-Op Diagnosis Specimens none Description of Procedure The patient has a history of stone disease and presented with 3 obstructing stones within the right proximal ureter. His pain was uncontrolled. We discussed placing and a stent and he agreed to proceed. Risks and benefits were explained including, bleeding, infection, damage to surrounding structures, and the need for future procedures to remove the stones and stent. He was placed in a lithotomy position after undergoing sedation. He was prepped and draped in a sterile fashion. A 22Fr rigid cystoscope was used to examine the bladder which was within normal limits. He does have an enlarged prostate. A wire was passed to the level of the right kidney under fluoro. I was able to pass a 6Fr x 26cm stent into the right ureter. A nice coil was seen proximally and distally. There was quite a bit of purulent fluid coming from the right ureter. The patients bladder was drained. The patient can likely be discharged home tomorrow. I would observe him overnight due to the purulent drainage after stent placement. I attest to the content of the Intraoperative Record and any orders documented therein. Any exceptions are noted below.
--- NOTE | 2020-12-08 14:21 | Anesthesiology Progress Note ---
Date of Service December 08, 2020 Anesthesia Post Procedure Vital Signs Vital Signs: Temp Pulse Pulse Resp BP BP BP 12/08/20 14:09 64 16 128/78 12/08/20 13:59 36.7 C 66 14 127/85 12/08/20 11:22 36.5 C 58 L 18 189/92 H 12/08/20 10:55 65 12/08/20 08:10 36.8 C 62 18 148/77 H 12/08/20 07:59 87 18 148/109 H 12/08/20 04:30 66 9 L 157/79 H 12/08/20 04:00 67 10 L 149/79 H 12/08/20 03:40 65 7 L 162/82 H 12/08/20 03:18 68 16 149/96 H 12/08/20 02:42 36.5 C 74 16 164/99 H Pulse Ox 12/08/20 14:09 99 12/08/20 13:59 99 12/08/20 11:22 95 12/08/20 10:55 12/08/20 08:10 95 12/08/20 07:59 98 12/08/20 04:30 99 12/08/20 04:00 100 12/08/20 03:40 99 12/08/20 03:18 99 12/08/20 02:42 97 Pain Intensity Right Flank: Pain Intensity: 2 Transfer of Care Handoff Completed per policy Notes Mental Status: alert / awake / arousable Patient Amnestic to Procedure: Yes Nausea / Vomiting: adequately controlled Pain: adequately controlled Airway Patency, RR, SpO2: stable & adequate BP & HR: stable & adequate Hydration State: stable & adequate Anesthetic Complications: no major complications apparent
--- NOTE | 2020-12-08 14:50 | History and Physical Report ---
DATE OF ADMISSION: 12/08/2020 CHIEF COMPLAINT: Kidney stone. HISTORY OF PRESENT ILLNESS: This is a 60-year-old male with past medical history significant for hyperlipidemia, chronic sinusitis, hypertension, gastroparesis, GERD, basal cell carcinoma of left uatsdin region status post Mohs procedure, sensorineural hearing loss of both ears, history of melanoma, who presents with right flank pain. The patient was here in the ER yesterday with the right flank pain and imaging studies, CAT scan, showed right nephrolithiasis, obstructing proximal right ureteral calculi, three proximal right ureteral calculi were visualized, largest of which measures 5 mm and it was located at the superior L4 level. The patient has history of kidney stones in the past, history of lithotripsy and cystoscopy in the past. The patient was sent home hoping that he will pass the stones by himself, but the patient states after going home the pain came back, so that is the reason he came back here. He is nauseous. Denies any fever, chills. He says he has some hematuria in the urine, some burning micturition. Denies any fever, chills. Somewhat constipated. Denies any blood in the stool. Says stools are black because he took Pepto-Bismol. He also states he has on and off some left-sided chest discomfort. No shortness of breath, no cough, no headache, no blurred vision, no earache, no runny nose, no sore throat. Currently resting comfortably and hemodynamically stable. ALLERGIES: No known drug allergies. PAST MEDICAL HISTORY: As mentioned above. PAST SURGICAL HISTORY: Colonoscopy, EGD, excision of the melanoma of the head and back, cholecystectomy. MEDICATIONS: Lisinopril 10 mg p.o. daily, Zofran 4 mg p.r.n., oxycodone 5-10 mg p.o. q. 4 hours p.r.n. FAMILY HISTORY: Significant for sister had melanoma; mother has heart disorder, lung disorder; father had aneurysm of the brain and at age of 69. SOCIAL HISTORY: . Chews 1 can of tobacco per day. Alcohol occasional. No drug use. REVIEW OF SYSTEMS: As per HPI. Rest of the review of systems negative. PHYSICAL EXAMINATION: GENERAL: The patient is of moderate build, not in acute distress. VITAL SIGNS: Temperature 36.5, pulse 66, respiratory rate 16, blood pressure 157/79, oxygen 99% on room air. HEENT: Extraocular movements intact. No pallor, no icterus. NECK: No JVD, no neck masses. CARDIOVASCULAR: S1, S2 heard, regular rate and rhythm, no murmur, no gallop. RESPIRATORY SYSTEM: Normal AP diameter. No accessory muscle use. No wheezing, no crackles. ABDOMEN: Soft, bowel sounds present. Mild tenderness in the right lower quadrant region. No CVA tenderness, no guarding, no rigidity. CENTRAL NERVOUS SYSTEM: Cranial nerves II-XII grossly intact. Nonfocal. EXTREMITIES: No edema, no erythema. LABORATORY DATA: WBC 13, hemoglobin 15.9, hematocrit 44.8, platelets 195. Sodium 142, potassium 4, chloride 111, bicarbonate 25, BUN 18, creatinine 1.6, serum glucose 120, calcium 8.8, total bilirubin 0.9, AST 18, ALT 34, alkaline phosphatase 112. Urinalysis, +2 blood. SARS-CoV-2 PCR negative. ASSESSMENT AND PLAN: This is a 60-year-old male who presents with renal colic. 1. Renal colic: Right distal ureteral stones, multiple stones, biggest stone was 5 mm. CAT scan done yesterday. Will place him on IV fluids, n.p.o., Flomax, IV antiemetics. Consult Urology for further recommendations. 2. Acute kidney injury: Creatinine 1.6, baseline around 1. Avoid nephrotoxic agents. Getting fluids. We will follow the labs in the a.m. 3. History of hypertension: Hold the lisinopril for acute kidney injury and place him on IV hydralazine p.r.n. Will monitor. 4. History of gastroparesis: Will monitor. 5. History of low-grade cerebral degenerations with mild nystagmus and minimal dystaxia. Follows with neurology 6. Deep venous thrombosis prophylaxis: Sequential compression devices. 7. Chest discomfort: Follow the serial enzymes and EKG and also echo. If any concerns, will consult cardiology. Follow in the med tele. DISPOSITION: Admit to medical floor. Expect to discharge home. FELISA
[2020-12-08] MEDS: ACETAMINOPHEN SUSP 325 MG/10.15 ML UDC PO PRN (20:41)
[2020-12-09] MEDS: SODIUM CHLORIDE 0.9% 1000ML 1,000 ML IV SCH (05:39)
[2020-12-09 06:00] LABS: Basophils # (auto) 0.02 K/uL (0-0.2); Basophils % (auto) 0.2 %; Eosinophils # (auto) 0.12 K/uL (0-0.5); Eosinophils % (auto) 1.5 %; Hematocrit (blood only) 41.7 % (42-52); Hemoglobin 14.6 g/dL (14.0-18.0); Immature Granulocytes # (auto) 0.01 K/uL (0.00-0.02); Immature Granulocytes % (auto) 0.1 %; Lymphocytes # (auto) 2.31 K/uL (1.2-3.4); Lymphocytes % (auto) 28.1 %; Mean Corpuscular Volume 85.6 fL (80-100); Monocytes # (auto) 0.71 K/uL (0.11-0.59); Monocytes % (auto) 8.6 %; Neutrophils # (auto) 5.05 K/uL (1.4-6.5); Neutrophils % (auto) 61.5 %; Platelet Count 144 K/uL (130-400); RDW Coefficient of Variation 13.5 % (11.5-14.5); RDW Standard Deviation 42.2 fL (36.4-46.3); Red Blood Count 4.87 M/uL (4.7-6.1); White Blood Count 8.22 K/uL (4.8-10.8)
[2020-12-09 06:26] LABS: BUN Creatinine Ratio 14.4 (10-20); Calcium 8.4 mg/dl (8.5-10.1); Est GFR (African American) 80.3 ml/min; Est GFR (Non-African American) 69.3 ml/min; Magnesium 2.2 mg/dl (1.8-2.4); Potassium 4.1 mmol/L (3.5-5.1)
--- NOTE | 2020-12-09 07:49 | Hospitalist Progress Note ---
Date of Service December 09, 2020 Assessment & Plan (1) Ureterolithiasis: (2) Nausea & vomiting: Ureterolithiasis , status post stent placement This is a 60-year-old male who presents with renal colic. 1. Renal colic: Right distal ureteral stones, multiple stones, biggest stone was 5 mm. On admission - IV fluids, Flomax, IV antiemetics. Urology consulted and pt is s/p stent placement (12/08), tolerated procedure well Currently feeling much better, Ditropan 5 mg twice daily started by urology for bladder spasms Will need urology outpatient follow-up for ureteroscopy laser lithotripsy in the future. Discharged on Ditropan antibiotics, pain meds 2. Acute kidney injury: Creatinine 1.6, baseline around 1. AGUSTINA Now resolved, stop IVF Avoid nephrotoxic agents. 3. History of hypertension: Held the lisinopril initially for acute kidney injury and placed him on IV hydralazine p.r.n. Will monitor. Resume lisinopril 4. History of gastroparesis: Will monitor. 5. History of low-grade cerebral degenerations with mild nystagmus and minimal dystaxia. Follows with neurology DVT prophylaxis: Sequential compression devices. Chest discomfort: serial enzymes negative, EKG w/o ischemic changes Currently no complaints. Pt reports has left upper chest dicsomfort on and off for past 1-2 weeks, possibly MSK in origin. Echo also ordered- pending. If any concerns, will consult cardiology. Follow in the med tele. DISPOSITION: med/ tele. Expect to discharge home. Admission and Anticipated Discharge Date Admission Date: December 08, 2020 Subjective Patient seen in follow-up of ureterolithiasis, status post stent placement This morning feeling much better, minimal pain, except for some spasms He is voiding without difficulty No chest pain, shortness of breath, abdominal pain, nausea or vomiting Review of Systems Review of Systems: All systems reviewed & are unremarkable except as noted in HPI & below Constitutional: no fever and no chills Respiratory: no cough and no dyspnea Cardiovascular: no chest pain and no palpitations Gastrointestinal: no abdominal pain, no nausea and no vomiting Physical Exam Physical Exam: GENERAL: The patient is of moderate build, not in acute distress. HEENT: NC/AT, Extraocular movements intact. No pallor, no icterus. NECK: No JVD, no neck masses. CARDIOVASCULAR: S1, S2 heard, regular rate and rhythm, no murmur, no gallop. RESPIRATORY: Normal AP diameter. No accessory muscle use. No wheezing, no crackles. ABDOMEN: Soft, bowel sounds present. No CVA tenderness, No tenderness to palpation, no guarding, no rigidity. NEURO: Alert and oriented x3, no facial asymmetry, speech fluent, moves all 4 extremities without difficulty EXTREMITIES: No edema, no erythema. Results & Data Results & Data ([facility]) Vital Signs (Past 12 Hours) Vital Signs Temp Pulse Pulse Resp BP Pulse Ox 12/09/20 07:19 62 12/09/20 03:50 37.0 C 68 20 132/73 94 12/08/20 23:38 71 12/08/20 23:15 36.9 C 71 20 117/74 93 Laboratory Results 12/09/20 12/09/20 12/09/20 Range/Units 05:51 05:51 05:51 WBC 8.22 (4.8-10.8) K/uL RBC 4.87 (4.7-6.1) M/uL Hgb 14.6 (14.0-18.0) g/dL Hct 41.7 L (42-52) % MCV 85.6 (80-100) fL MCH 30.0 (25-34) pg MCHC 35.0 (32-36) g/dL RDW Std Deviation 42.2 (36.4-46.3) fL RDW Coeff of Pollo 13.5 (11.5-14.5) % Plt Count 144 (130-400) K/uL MPV 9.0 (7.4-10.4) fL Immature Gran % (Auto) 0.1 % Neut % (Auto) 61.5 % Lymph % (Auto) 28.1 % Barton % (Auto) 8.6 % Eos % (Auto) 1.5 % Baso % (Auto) 0.2 % Neut # (Auto) 5.05 (1.4-6.5) K/uL Lymph # (Auto) 2.31 (1.2-3.4) K/uL Barton # (Auto) 0.71 H (0.11-0.59) K/uL Eos # (Auto) 0.12 (0-0.5) K/uL Baso # (Auto) 0.02 (0-0.2) K/uL Immature Gran # (Auto) 0.01 (0.00-0.02) K/uL Sodium 142 (136-145) mmol/L Potassium 4.1 (3.5-5.1) mmol/L Chloride 113 H (98-107) mmol/L Carbon Dioxide 23 (21-32) mmol/L Anion Gap 6.0 (3-11) BUN 16 (7-18) mg/dl Creatinine 1.13 D (0.6-1.4) mg/dl Est Cr Clr Drug Dosing 81.0 ml/min Est GFR ( Amer) 80.3 ml/min Est GFR (Non-Af Amer) 69.3 ml/min BUN/Creatinine Ratio 14.4 (10-20) Glucose 96 (70-99) mg/dl Calcium 8.4 L (8.5-10.1) mg/dl Magnesium 2.2 (1.8-2.4) mg/dl Troponin I (0-0.045) ng/ml Hepatitis C Ab Screen Pending 12/08/20 12/08/20 Range/Units 15:34 08:44 WBC (4.8-10.8) K/uL RBC (4.7-6.1) M/uL Hgb (14.0-18.0) g/dL Hct (42-52) % MCV (80-100) fL MCH (25-34) pg MCHC (32-36) g/dL RDW Std Deviation (36.4-46.3) fL RDW Coeff of Pollo (11.5-14.5) % Plt Count (130-400) K/uL MPV (7.4-10.4) fL Immature Gran % (Auto) % Neut % (Auto) % Lymph % (Auto) % Barton % (Auto) % Eos % (Auto) % Baso % (Auto) % Neut # (Auto) (1.4-6.5) K/uL Lymph # (Auto) (1.2-3.4) K/uL Barton # (Auto) (0.11-0.59) K/uL Eos # (Auto) (0-0.5) K/uL Baso # (Auto) (0-0.2) K/uL Immature Gran # (Auto) (0.00-0.02) K/uL Sodium (136-145) mmol/L Potassium (3.5-5.1) mmol/L Chloride (98-107) mmol/L Carbon Dioxide (21-32) mmol/L Anion Gap (3-11) BUN (7-18) mg/dl Creatinine (0.6-1.4) mg/dl Est Cr Clr Drug Dosing ml/min Est GFR ( Amer) ml/min Est GFR (Non-Af Amer) ml/min BUN/Creatinine Ratio (10-20) Glucose (70-99) mg/dl Calcium (8.5-10.1) mg/dl Magnesium (1.8-2.4) mg/dl Troponin I < 0.015 < 0.015 (0-0.045) ng/ml Hepatitis C Ab Screen Medications Administered Current Inpatient Medications Acetaminophen (Acetaminophen Susp 325 Mg/10.15 Ml Udc) 650 mg PO Q6H PRN PRN Reason: Pain or Fever Stop: 01/07/21 20:26 Last Admin: 12/08/20 20:41 Dose: 650 mg Documented by: Diatrizoate Meglumine (Diatrizoate Meglumine 30% 100ml Vial) 100 ml INSTIL UD PRN PRN Reason: Radiology Use Stop: 12/12/20 13:12 Hydralazine HCl (Hydralazine Hcl 20 Mg/Ml Vial) 5 mg IV Q6H PRN PRN Reason: Hypertension Stop: 01/07/21 08:14 Hydromorphone HCl (Hydromorphone Inj 0.5 Mg/0.5 Ml Syr) 0.5 mg IV Q3H PRN PRN Reason: Pain Stop: 12/22/20 08:14 Last Admin: 12/08/20 10:03 Dose: 0.5 mg Documented by: Ceftriaxone Sodium 2,000 mg/ (Dextrose) 70 mls @ 100 mls/hr IV Q24H ANA; Protocol Stop: 12/18/20 09:59 Last Infusion: 12/08/20 11:24 Dose: Infused Documented by: Sodium Chloride (Nss 1000ml) 1,000 mls @ 125 mls/hr IV .Q8H ANA Stop: 01/07/21 08:14 Last Admin: 12/09/20 05:39 Dose: 125 mls/hr Documented by: Oxycodone HCl (Oxycodone Hcl Ir 5 Mg Tab (Immediate Release)) 5 - 10 mg PO Q4H PRN PRN Reason: pain Stop: 12/22/20 08:14 Tamsulosin HCl (Tamsulosin Hcl 0.4 Mg Cap) 0.4 mg PO QAM [facility] Stop: 01/07/21 08:59 Last Admin: 12/08/20 10:11 Dose: Not Given Documented by:
[2020-12-09] MEDS: TAMSULOSIN HCL 0.4 MG CAP PO SCH (08:39)
[2020-12-09] MEDS: cefTRIAXone SODIUM 2,000 MG in DEXTROSE 5% 50 ML IV SCH (09:59)
--- NOTE | 2020-12-09 10:11 | Electrocardiogram Report ---
Test Reason : Blood Pressure : / mmHG Vent. Rate : 064 BPM Atrial Rate : 064 BPM P-R Int : 160 ms QRS Dur : 088 ms QT Int : 430 ms P-R-T Axes : 003 -36 015 degrees QTc Int : 443 ms Normal sinus rhythm Left axis deviation Abnormal ECG When compared with ECG of 01-JUN-2020 12:45, Nonspecific T wave abnormality no longer evident in Lateral leads Confirmed by Surinder Silva ([id number]) on 12/09/2020 10:11:18 AM Referred By: REFERRED SELF Confirmed By:Surinder Silva
[2020-12-09] MEDS ORDERED: lisinopril 10 MG TAB PO SCH (12:45)
--- NOTE | 2020-12-09 13:55 | Urology Progress Note ---
Date of Service December 09, 2020 Assessment & Plan (1) Ureterolithiasis: Doing well s/p stent. Will add ditropan 5mg bid to help with bladder spasms (pain at the tip of the penis). Patient will need outpatient ureteroscopy, laser lithotripsy in the future Discharge per primary team with abx, pain meds, and ditropan Present on Admission?: Yes Admission and Anticipated Discharge Date Admission Date: December 08, 2020 Subjective POD #1 right ureteral stent. Doing well. Mild flank pain with voiding and pain at the tip of the penis. No issues voiding. No fevers. Pain improved today. No N/V. Review of Systems Review of Systems: All systems reviewed & are unremarkable except as noted in HPI & below Physical Exam Physical Exam: NAD AVSS nonlabored regular rate soft NT AOx 3 normal mood no edema in extremities Results & Data ([facility]) Vital Signs (Past 12 Hours) Vital Signs Temp Pulse Pulse Resp BP BP Pulse Ox 12/09/20 11:33 36.5 C 72 20 171/89 H 97 12/09/20 07:58 36.8 C 68 20 132/81 93 12/09/20 07:19 62 12/09/20 03:50 37.0 C 68 20 132/73 94 PG Care Time/CCT Total # of Minutes Spent Total Time Spent with Patient: Total time spent is greater than 50% in coordination of care (as documented) at patient's floor/unit and/or counseling patient: Coding Level of Care Code 70411 Subseq Hosp Care Lvl 2 History Expanded Problem Focused Exam Expanded Problem Focused Diagnoses Ureterolithiasis N20.1 Time Spent (min) 20
--- NOTE | 2020-12-09 14:59 | Discharge Summary ---
Date of Service December 09, 2020 Admission HPI Per Admitting Provider This is a 60-year-old male with past medical history significant for hyperlipidemia, chronic sinusitis, hypertension, gastroparesis, GERD, basal cell carcinoma of left yazdanism region status post Mohs procedure, sensorineural hearing loss of both ears, history of melanoma, who presents with right flank pain. The patient was here in the ER yesterday with the right flank pain and imaging studies, CAT scan, showed right nephrolithiasis, obstructing proximal right ureteral calculi, three proximal right ureteral calculi were visualized, largest of which measures 5 mm and it was located at the superior L4 level. The patient has history of kidney stones in the past, history of lithotripsy and cystoscopy in the past. The patient was sent home hoping that he will pass the stones by himself, but the patient states after going home the pain came back, so that is the reason he came back here. He is nauseous. Denies any fever, chills. He says he has some hematuria in the urine, some burning micturition. Denies any fever, chills. Somewhat constipated. Denies any blood in the stool. Says stools are black because he took Pepto-Bismol. He also states he has on and off some left-sided chest discomfort. No shortness of breath, no cough, no headache, no blurred vision, no earache, no runny nose, no sore throat. Currently resting comfortably and hemodynamically stable. Admission Exam Per Admitting Provider GENERAL: The patient is of moderate build, not in acute distress. VITAL SIGNS: Temperature 36.5, pulse 66, respiratory rate 16, blood pressure 157/79, oxygen 99% on room air. HEENT: Extraocular movements intact. No pallor, no icterus. NECK: No JVD, no neck masses. CARDIOVASCULAR: S1, S2 heard, regular rate and rhythm, no murmur, no gallop. RESPIRATORY SYSTEM: Normal AP diameter. No accessory muscle use. No wheezing, no crackles. ABDOMEN: Soft, bowel sounds present. Mild tenderness in the right lower quadrant region. No CVA tenderness, no guarding, no rigidity. CENTRAL NERVOUS SYSTEM: Cranial nerves II-XII grossly intact. Nonfocal. EXTREMITIES: No edema, no erythema. Principal Diagnosis Ureterolithiasis, status post stent placement Discharge Exam GENERAL: The patient is of moderate build, not in acute distress. HEENT: NC/AT, Extraocular movements intact. No pallor, no icterus. NECK: No JVD, no neck masses. CARDIOVASCULAR: S1, S2 heard, regular rate and rhythm, no murmur, no gallop. RESPIRATORY: Normal AP diameter. No accessory muscle use. No wheezing, no crackles. ABDOMEN: Soft, bowel sounds present. No CVA tenderness, No tenderness to palpation, no guarding, no rigidity. NEURO: Alert and oriented x3, no facial asymmetry, speech fluent, moves all 4 extremities without difficulty EXTREMITIES: No edema, no erythema. Discharge Data Allergies Allergy/AdvReac Type Severity Reaction Status Date / Time No Known Allergies Allergy Verified 12/08/20 02:54 Consultations 12/08/20 05:24 ED Decision to Admit Stat 12/08/20 08:15 Consult Urology Routine Procedures Performed Operation Date: 12/08/20 13:30 Actual Procedures p Cystoscopy, Right Ureteral Stent Placement(Right) - Jeanne Bazan MD Ordered Studies 12/08/20 [place] retrograde includes kub Routine Hospital Course (1) Ureterolithiasis: (2) Nausea & vomiting: Ureterolithiasis , status post stent placement This is a 60-year-old male who presents with renal colic. 1. Renal colic: Right distal ureteral stones, multiple stones, biggest stone was 5 mm. On admission - IV fluids, Flomax, IV antiemetics. Urology consulted and pt is s/p stent placement (12/08), tolerated procedure well Currently feeling much better, Ditropan 5 mg twice daily started by urology for bladder spasms Will need urology outpatient follow-up for ureteroscopy laser lithotripsy in the future. Discharged on Ditropan antibiotics, pain meds 2. Acute kidney injury: Creatinine 1.6, baseline around 1. AGUSTINA Now resolved, stop IVF Avoid nephrotoxic agents. 3. History of hypertension: Held the lisinopril initially for acute kidney injury and placed him on IV hydralazine p.r.n. Will monitor. Resume lisinopril 4. History of gastroparesis: Will monitor. 5. History of low-grade cerebral degenerations with mild nystagmus and minimal dystaxia. Follows with neurology DVT prophylaxis: Sequential compression devices. Chest discomfort: serial enzymes negative, EKG w/o ischemic changes Currently no complaints. Pt reports has left upper chest dicsomfort on and off for past 1-2 weeks, possibly MSK in origin. Echo also ordered- pending. If any concerns, will consult cardiology. Follow in the med tele. DISPOSITION: med/ tele. Expect to discharge home. Total Time Total Time Spent Total Time Spent (In Minutes): 40 Total Time Includes: Examination of the Patient, Discharge Planning, Medication Reconciliation and Communication With Other Providers Discharge Plan Discharge Items Patient Disposition: Home - Self-Care Reason For Visit: KIDNEY STONE Discharge Diagnosis: Ureterolithiasis, status post stent placement Activity: Per Instructions section Non-emergency contact: Primary Care Provider and Urologist Call non-emergency contact if: you have any medication questions and your symptoms worsen Follow-up/Referrals: Marie Driver MD [Primary Care Provider] - Diet: Regular Addtl Attending Provider Instructions: Follow-up with your primary care doctor within 1 to 2 weeks. You will also need to follow-up with urology, for stent removal. In the meantime, make sure to take antibiotic ciprofloxacin, as prescribed. For bladder spasm, take Ditropan 5 mg twice a day. For pain take Tylenol 1000 mg up to 3 times a day. For more severe pain you can also take oxycodone, which was already prescribed by ER provider. Pending Studies at Discharge: No Stand-Alone Forms: [facility] [place], Smoking Cessation Medications and DC Order Prescriptions: New tamsulosin 0.4 mg Capsule 0.4 mg PO QAM Qty: 14 RF: 0 oxybutynin chloride 5 mg Tablet 5 mg PO BID 14 Days Qty: 28 RF: 0 ciprofloxacin HCl 500 mg tablet 500 mg PO BID 5 Days Qty: 10 RF: 0 Continued lisinopril 10 mg tablet 10 mg PO QAM RF: 0 ondansetron 4 mg tablet,disintegrating 4 mg PO Q4H PRN (Reason: nausea and vomiting) Qty: 8 RF: 0 oxycodone 5 mg tablet 5 - 10 mg PO Q4H PRN (Reason: pain) Qty: 14 RF: 0 Discharge Orders: Discharge Order (Routine); Ordered 12/09/20 Ordered By: Adis Coleman Admission Data Admit Date/Time: 12/08/20 06:16 Attending Provider: Adis Coleman Admit Provider: Figueroa Betancur Primary Care Provider: Marie Driver Other Providers: Figueroa Betancur ; Jeanne Bazan
[2020-12-09] MEDS ORDERED: OXYBUTYNIN CHLORIDE 5 MG TAB PO STA (15:03)
[2020-12-09] MEDS: ACETAMINOPHEN SUSP 325 MG/10.15 ML UDC PO PRN (15:13)
[2020-12-09] MEDS ORDERED: OXYBUTYNIN CHLORIDE 5 MG TAB PO SCH (21:00)
== END 2020-12-09 16:22 | disposition home or self-care (01) | DRG 660 ==
LOC: ED 02:40 → 3N 06:16 → SUATTDRO 06:16 → 3N 07:59 → 2N 10:35